=== PATIENT | male | born 1945 | race Caucasian/White ===

== ENCOUNTER → 2017-05-07 06:33 | Outpatient (CLI) | payer MEDICARE, OTHER, SELFPAY ==
--- NOTE | 2017-05-07 18:28 | STRESSREP ---
Stress Test Report Pharmacologic myocardial perfusion stress protocol. 71-year-old man with a history of pacemaker implantation atherosclerotic cardiovascular disease. Stress protocol: Resting EKG demonstrates sinus bradycardia with a rate of 58 bpm occasional premature atrial complexes noted. 0.4 mg regadenoson was infused per usual protocol followed by rapid intravenous saline flush injection. Continuous EKG monitoring was performed. Patient maintained sinus rhythm throughout the recording with frequent premature ventricular complexes. The maximum heart rate attained was 61 beats minute which was 40% maximum predicted heart rate the maximum workload attained was 1 metabolic equivalent. At rest there were no ST or T-wave changes noted suggest abnormal flow reserve at peak infusion no ST or T-wave changes were noted to suggest abnormal flow reserve. The resting blood pressure was 140/80 mmHg. Myocardial perfusion protocol. 14.8 mCi of technetium 99m sestamibi was injected at rest. 0.4 mg of regadenoson was infused per usual protocol. Peak infusion 44.3 mCi of technetium 99m sestamibi was injected stress images were obtained stress and rest images were reconstructed and compared in the short axis vertical long and horizontal long axis. Gated images were also obtained. Perfusion SPECT analysis. Review of the stress images demonstrate normal uptake of tracer noted in all areas of the myocardium. The resting images similarly demonstrate normal uptake of tracer noted in all areas myocardium. There is a small portion of the apex which has a perfusion defect noted on the stress and resting images to a similar extent. The above is not suggestive of ischemia or previous infarct cannot be completely excluded or apical pacemaker activation may also be responsible. Gated SPECT analysis: The gated ejection fraction is noted to be 58%. Conclusion Probably normal pharmacologic myocardial perfusion stress test. Preserved ejection fraction.
== END ==
PROVIDERS: Family Provider Family Medicine; PCP Family Medicine; Visit Provider Internal Medicine Cardiovascular Disease
DX: I25.110 Atherosclerotic heart disease of native coronary artery with unstable angina pectoris (principal)
CPT/HCPCS: 78452; 93017; A9500; A4216; J2785

== ENCOUNTER 2017-09-23 07:18 | Day surgery (SDC) | payer MEDICARE, OTHER, SELFPAY ==
[2017-09-23 07:43] VITALS: BP 141/87; PULSE 54; RESP 16; TEMP 36.3; O2SAT 96; BMI 33.3
[2017-09-23 08:00] LABS: Prothrombin Time Fingerstick 11.3 SEC (11.9-14.4)
--- NOTE | 2017-09-23 09:10 | HEM_PTH ---
PATIENT: ALIA ANDRES LOC: [facility] [place][id number] AGE/SX: 72/M ROOM: RE09/23/[address]: Dr. Johnnie Bethea MD : 1945 BED: DIS: 09/23/2017 SPEC #: [id number] RECD: 09/23/17 12:47 STATUS: HAILY DAWN #: [id number] KOLBY: 09/23/17 09:[address]: Johnnie Bethea DEPT: SURGICAL PATHOLOGY RECD BY: Mao Anderson ENTERED: 09/23/17 13:34 SP TYPE: HEMORRHOID OTHR DR: Dr. Adriano Duran MD Tissues: A - HEMORRHOIDS B - HEMORRHOIDS C - HEMORRHOIDS Procedures: Surgery Specimen Level III HEADER OPERATION: Hemorrhoidectomy PRE-OP DIAGNOSIS: Internal and external hemorrhoids TISSUE SUBMITTED: A. Anterior right hemorrhoidal complex, B. Lateral left hemorrhoidal complex, C. Posterior hemorrhoidal complex MICROSCOPIC DIAGNOSIS A. Anterior right hemorrhoidal complex, hemorrhoidectomy: A piece of squamous mucosa with dilated and congested blood vessels, consistent with hemorrhoid. B. Lateral left hemorrhoidal complex, hemorrhoidectomy: A piece of anorectal mucosa with dilated and congested blood vessels, consistent with hemorrhoid. C. Posterior hemorrhoidal complex, hemorrhoidectomy: A piece of anorectal mucosa with dilated and congested blood vessels, consistent with hemorrhoid. SJ:astrid 09/24/17 MICROSCOPIC DESCRIPTION Slides are reviewed. GROSS DESCRIPTION A - Received in fixative is one container labeled with the patient's name and designated anterior right hemorrhoidal complex. The specimen consists of a single irregular fragment of glistening hines mucosa with attached submucosal tissue measuring 3 x 2 x 1 cm. Sections do not reveal mass lesions. A rental sales representative section is submitted in one cassette. B - Received in fixative is one container labeled with the patient's name and designated left lateral hemorrhoid complex. The specimen consists of a single irregular fragment of glistening hines mucosa with attached submucosal tissue measuring 2.8 x 2.5 x 1 cm. Sections do not reveal mass lesions. A rental sales representative section is submitted in one cassette. C - Received in fixative is one container labeled with the patient's name and designated posterior hemorrhoid complex. The specimen consists of a single irregular fragment of pink-hines soft tissue measuring 1 x 0.5 x 0.3 cm. The specimen is totally submitted in one cassette. / AM:astrid 09/23/17 TC:5 CPT: 93725 x3
[2017-09-23] MEDS: Bupivacaine 0.5% PF 10 ML VIAL (10:36)
[2017-09-23] MEDS: Dibucaine 30 GM Tube 1 APPLIC (10:36)
--- NOTE | 2017-09-23 10:44 | PCM.OPRPT ---
Report of Operation Date of Procedure: 09/23/17 Pre-Operative Diagnosis: symptomatic hemorrhoids Post-Operative Diagnosis: symptomatic hemorrhoids, right anterior, left lateral, small posterior Surgery/Procedure Performed:: examination under anesthesia, 3 quadrant hemorrhoidectomy csr retail: None Type of Anesthesia:: General Anesthesiologist: Royer Pandey ASA3 Specimen's removed: right anterior, left lateral, small posterior Estimated Blood Loss (mL): 100 Fluids Replaced: 1000 Description of Procedure: The patient was brought to the operating suite. Sign in was performed verifying patient, site, procedure, position, and DVT prophylaxis with SCDs. Patient received clindamycin 600 mg for antibiotic prophylaxis. Following induction of general anesthetic. The patient was transferred to supine position to the prone jackknife position with care being taken to avoid pressure points. The patients perineal area was then prepped and draped in the usual fashion. Timeout was performed verifying patient, site, procedure, and position. External examination demonstrated significant prolapsing hemorrhoids in the right anterior and left lateral quadrants, with a smaller prolapsing hemorrhoid in the posterior aspect-grade 2-3. Bi-digital exam demonstrated significant hemorrhoids with prolapsing mucosa and no other palpable abnormalities Local anesthetic was injected around the planned excision site. All 3 quadrants were addressed. Largest to smallest. The limit of the resection was marked on the lateral anoderm with a hemostat, the hemorrhoidal main complex was grasped with a Davis clamp and the apex grasped with a small hemostat. A scalpel was used to start the dissection on the lateral anoderm and dissection carried to the dentate line. At this point, the sphincter complex was dissected off the hemorrhoid to avoid sphincter injury bluntly. Electrocautery was then used to dissect the hemorrhoid proximal to the dentate line. A 2-0 chromic [id number] suture was placed above the apex of the proximal resection. The hemorrhoidal complex transected. Each hemorrhoidal complex was sent separately. The defect was then closed with a running locking suture. The dentate line transition to a simple suture. This procedure was repeated for the additional 2 hemorrhoidal complexes. With good hemostasis, half percent Marcaine was injected in the perianal skin and dibucaine impregnated Gelfoam was placed in the anal canal. A dressing was applied and mesh pants were used to hold the dressing in place. The patient was returned to the supine position and extubated and brought to recovery room in stable condition. - Admit VTE Documentation VTE Present on Admission: No VTE Mechan Device Prophylaxis: SCD's VTE Pharm Prophylaxis ordered?: Yes
--- NOTE | 2017-09-23 10:56 | PCM.DC.REC ---
Discharge Diet: No Restrictions Discharge Activity: Return to Normal Activity, May Not Drive - while taking narcotic pain medications. Additional Activity Instructions:: Do not drive or work with heavy equipment or sign legal documents for 24 hours. Be aware that pain medications may cause nausea. You should typically eat light foods as you take your pain medications. Pain medications may also cause constipation, if you have difficulty with this please discuss with your doctor. Additional Dressing/Incision Instructions:: Leave the operative bandage on for 2 days. If a local anesthetic plug was placed in the anal area, try not to expel for 24-[address] dibucaine ointment on the perianal area as needed. Sitz baths twice daily and after bowel movements. restart coumadin today Allergies/Adverse Reactions: Allergies codeine Allergy (Verified 09/17/17 11:43) Rash morphine Allergy (Verified 09/17/17 11:43) Rash venom-honey bee [bee venom (honey bee)] Allergy (Verified 09/17/17 11:43) Anaphylaxis Medications to take at Discharge Escitalopram Oxalate [Lexapro] 20 mg PO DAILY 11/28/13 Lisinopril [Zestril] 20 mg PO QHS 11/28/13 Simvastatin [Zocor] 40 mg PO QHS 11/28/13 Warfarin Sodium [Coumadin] 5 mg PO DAILY 09/17/17 Dibucaine 1 applic OPERA.SITE PRN PRN 14 Days #2 tube 09/23/17 The following prescriptions were given: Dibucaine 1 applic OPERA.SITE PRN PRN 14 Days #2 tube PRN Reason: Anal/Rectal Irritations Primary Care Physician: Adriano Duran MD [Primary Care Provider] - Test Results: Test results from this visit will be discussed in further detail at your follow-up appointment, if applicable. Please Follow Up With: Johnnie Bethea MD - [phone] When: Plan to have a follow up approximately 14 days after surgery.
[2017-09-23 11:03] VITALS: BP 106/95; BP 141/87; PULSE 45; RESP 18; TEMP 36.1; O2SAT 94
[2017-09-23 11:15] VITALS: BP 112/87; BP 141/87; PULSE 54; RESP 18; O2SAT 97
[2017-09-23 11:30] VITALS: BP 127/71; BP 141/87; PULSE 53; RESP 18; TEMP 36.2; O2SAT 94
[2017-09-23 12:18] VITALS: BP 141/87; BP 147/81; PULSE 100; RESP 16; TEMP 36.3; O2SAT 96
== END 2017-09-23 12:22 | disposition home or self-care (01) ==
LOC: SDC 07:19 → AC 07:19
PROVIDERS: Family Provider Family Medicine; PCP Family Medicine; Visit Provider Surgery
PROC: (CPT 46250; principal; 2017-09-23 08:55)
DX: K64.2 Third degree hemorrhoids (principal); I48.91 Unspecified atrial fibrillation; F41.9 Anxiety disorder, unspecified; F32.9 Major depressive disorder, single episode, unspecified; I10 Essential (primary) hypertension; E78.5 Hyperlipidemia, unspecified; G47.33 Obstructive sleep apnea (adult) (pediatric); R56.9 Unspecified convulsions; E55.9 Vitamin D deficiency, unspecified; F98.8 Other specified behavioral and emotional disorders with onset usually occurring in childhood and adolescence; Z95.0 Presence of cardiac pacemaker; Z85.820 Personal history of malignant melanoma of skin; Z87.891 Personal history of nicotine dependence; Z79.01 Long term (current) use of anticoagulants; Z79.891 Long term (current) use of opiate analgesic; Z79.899 Other long term (current) drug therapy
CPT/HCPCS: 46250; 36416; 85610; 88304; J7120

== ENCOUNTER 2018-09-17 09:28 | Observation (INO) | payer MEDICARE, OTHER, SELFPAY ==
[2018-07-19 13:50] VITALS: BMI 33.7
[2018-09-17] VITALS (8 sets, daily range): BP systolic 118–149; BP diastolic 74–84; PULSE 50; RESP 16–18; TEMP 36.4–36.7; O2SAT 94–97; BMI 33.7; BMI 34.4
--- NOTE | 2018-09-17 09:43 | RAD_ITS ---
STUDY: X-RAY CHEST REASON FOR EXAM: Male, 73 years old. Chest pain. TECHNIQUE: Single AP portable view of the chest. COMPARISON: Comparison is made with prior study of August 24, 2012. FINDINGS: The lungs are clear and expanded. There is no demonstrated pleural abnormality. There is borderline cardiomegaly. A left-sided dual-chamber pacemaker is seen. Normal mediastinum and yasemin. Normal visualized pulmonary arteries. There is atherosclerotic tortuosity of the aortic arch and descending thoracic aorta. There are diffuse degenerative changes of the visualized thoracic spine. Normal visualized ribs, clavicles, and shoulders. There is no demonstrated abnormality of the visualized soft tissue structures of the upper abdomen. RAD/Chest 1 View (Portable) IMPRESSION: Borderline cardiomegaly. No acute abnormality is seen. Electronically Signed: Fernando Garcia, at 10:08 EDT , Service support ,
--- NOTE | 2018-09-17 09:43 | EKG12_ITS ---
Test Reason : CP Blood Pressure : / mmHG Vent. Rate : 054 BPM Atrial Rate : 049 BPM P-R Int : 000 ms QRS Dur : 108 ms QT Int : 452 ms P-R-T Axes : 000 024 050 degrees QTc Int : 428 ms Atrial-paced rhythm with occasional Premature ventricular complexes Nonspecific T wave abnormality Abnormal ECG Confirmed by CARISA CAMPBELL ([id number]), research editor CHERYL GEORGE ([id number]) on 09/20/2018 1:58:21 PM Referred By: Kali Miller Confirmed By:CARISA CAMPBELL
[2018-09-17 10:11] LABS: Absolute Lymphocyte Count 1.44 X10^3/uL (0.83-4.51); Absolute Neutrophil Count 3.6 X10^3/uL (2.0-7.7); Basophil# 0.02 X10^3/uL; Basophil% 0.3 % (0-1); Eosinophil# 0.15 X10^3/uL; Eosinophils% 2.5 % (0-5); Hematocrit 51.2 % (40-54); Hemoglobin 17.3 g/dL (13.0-16.5); Lymphocyte # 1.44 X10^3/ul (4.0); Lymphocyte % 24.2 % (19-41); Mean Corp Hgb Conc 33.8 g/dL (32-36); Mean Corpuscular Hgb 31.5 pg (27.0-32.0); Mean Corpuscular Volume 93.1 fL (80-94); Mean Platelet Vol. 10.1 fl (6.2-12.0); Monocyte# 0.72 X10^3/uL; Monocyte% 12.1 % (0-10); NRBC Flagged by Analyzer 0 % (0-5); Neutrophil # 3.58 X10^3/uL (2.7-7.7); Neutrophil % 60.1 % (47-70); Platelet Count 139 K/mm3 (150-450); RBC Distribution Width CV 12.9 % (11.6-14.6); RBC Distribution Width SD 44.2 fl (35.1-43.9)
[2018-09-17 10:17] LABS: International Normalized Ratio 2.7; Prothrombin Time (Protime)PT. 28.7 SECONDS (11.7-14.9)
[2018-09-17] MEDS: 0.9% Normal Saline 1,000 ML 150 ML IV (10:20)
[2018-09-17 10:21] LABS: Anion Gap 2 (5-15); BUN 19 mg/dL (7-18); BUN/Creat Ratio 14.4 RATIO (10-20); Calcium,Total 8.8 mg/dL (8.5-10.1); Chloride 102 mmol/L (98-107); Creatinine, Serum 1.32 mg/dL (0.70-1.30); EST Glomerular Filtration Rate 57 mL/min (>60); Est Glom Filt Rate - Afr Amer 68 mL/min (>60); Estimated Creatinine Clearance 49.84 ml/min; Glucose 76 mg/dL (74-106); Potassium 4.2 mmol/L (3.5-5.1); Sodium Level 136 mmol/L (136-145)
--- NOTE | 2018-09-17 10:37 | ED.DCSUM_ITS ---
- ER Visit Summary Date of Service: 09/17/18 Chief Complaint: [Chest pain] History of Present Illness: The patient is a 73 M [since the emergency department complaint of chest discomfort that started about a week ago. Patient had intermittent pain lasting up to several hours at times. He did have one episode of what he thought was indigestion that lasted about 4 hours and he states that he had a Kailee fundoplication therefore he really should have heartburn issues. Patient complains of fatigue and complains of some intermittent discomfort and numbness in his left arm. Patient does complain of shortness of breath with activity and exertion. He denies symptoms necessarily being triggered by exertion however. Patient does have history of coronary artery disease, hypertension, high cholesterol, and history of A. fib. Patient has a pacemaker.] States that he thinks he had a heart catheterization about 11 years ago. He thinks his last stress test was maybe 2 years ago. Physical Examination: [HEENT-PERRLA, EOMI. Cranial nerves II through XII grossly intact. TMs clear. Mucous membranes moist. No adenopathy. Cardiovascular-regular rate and rhythm without murmur or ectopy Lungs-clear to auscultation, chest wall stable without crepitus or subcu emphysema Abdomen-normoactive bowel sounds, soft, nontender, no rebound or rigidity, no peritoneal signs. Extremities-intact ?4, normal range of motion, normal pulses, atraumatic] Test Results: [EKG obtained on arrival showed an atrially paced rhythm with some nonspecific ST changes and occasional PVCs. CBC with differential showed a white count 6.0, hemoglobin 17, hematocrit 51, platelets 139. Chemistries unremarkable. INR was 2.7. Troponin is less than 0.015. Chest x-ray showed nothing acute.] Emergency Department Course and Treatment: [Patient was observed on monitors here. He had no discomfort on arrival.] Treatment Plan: [Admit for further work-up and evaluation of chest pain.] Disposition: [Admit] Impression: [Chest pain-rule out acute current syndrome] This note was generated with [employer] software. It may contain incorrect words, spelling, and punctuation that were not noted in review of the chart prior to signing ED Disposition - Plan for ED Patient: Referrals: Adriano Duran MD [Primary Care Provider] -
--- NOTE | 2018-09-17 10:59 | HP.PCM_ITS ---
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 4457 [address] II Sterox #[id number] (8) Sick sinus syndrome Status: Chronic (9) Atherosclerotic heart disease of [place] coronary artery without angina pectoris Status: Chronic Qualifiers: [place] vs. transplanted heart: [place] heart Qualified Code(s): I25.10 - Atherosclerotic heart disease of [place] coronary artery without angina pectoris Comment: Mild (10) Sleep apnea with use of nocturnal bilevel positive airway pressure (BPAP) Status: Chronic History of Present Illness Date of Admission: 09/17/18 Chief Complaint: Chest pain The patient is a 73 year old M with history of mild atherosclerotic heart dis ease, sick sinus syndrome on pacemaker, paroxysmal A. fib on Coumadin came to ER with chest pain intermittently for 10 days. Chest pain feels like tightness, with radiation to left arm/numbness, sometimes radiates to back along with shortness of breath. Patient has been getting short of breath with a small distances or within home last 6 months. Last time he had Lexiscan stress test in April 2017 and was reported negative with EF 58% Past Medical History Past Medical History (Chronic Problems): Chronic Problems (Last Reviewed 07/19/18 @ 13:54 by Yaquelin Tomlinson) Sleep apnea with use of nocturnal bilevel positive airway pressure (BPAP) (Chronic) terminologist current use of anticoagulant (Chronic) Bradycardia (Chronic) Paroxysmal atrial fibrillation (Chronic) JHONATAN treated with BiPAP (Chronic) Essential hypertension (Chronic) Hyperlipemia (Chronic) Presence of permanent cardiac pacemaker (Chronic ~11/12/09) BSX, S603 [employer] 60 # [id number]; Lead 1 [employer] 4457 [address] II [employer]ox #[id number] Sick sinus syndrome (Chronic) Atherosclerotic heart disease of [place] coronary artery without angina pectoris (Chronic) Mild Medical History: Medical History (Last Reviewed 06/10/19 @ 13:54 by Yaquelin Tomlinson) terminologist current use of anticoagulant (Chronic) Z79.01 Bradycardia (Acute) R00.1 Paroxysmal atrial fibrillation (Acute) I48.0 JHONATAN treated with BiPAP (Chronic) G47.33 Essential hypertension (Chronic) I10 Hyperlipemia (Chronic) E78.5 Presence of permanent cardiac pacemaker (Chronic) Onset Date: ~11/12/09 Z95.0 BSX, S603 [employer] 60 # [id number]; Lead 1 [employer] 4457 [employer] II Sterox #[id number] Sick sinus syndrome (Acute) I49.5 Atherosclerotic heart disease of [place] coronary artery without angina pectoris (Chronic) I25.10 Mild Seizures R56.9 Allergies chlorhexidine Allergy (Severe, Verified 09/17/18 09:33) Rash codeine Allergy (Severe, Verified 09/17/18 09:33) Rash morphine Allergy (Severe, Verified 09/17/18 09:33) Rash venom-honey bee [bee venom (honey bee)] Allergy (Severe, Verified 09/17/18 09:33) Anaphylaxis midazolam [From Versed] Adverse Reaction (Severe, Verified 09/17/18 09:33) Mental status change Home Medications: Ambulatory Orders Medication Instructions Recorded Escitalopram Oxalate [Lexapro] 20 mg PO DAILY 11/28/13 Lisinopril [Zestril] 20 mg PO QHS 11/28/13 Simvastatin [Zocor] 40 mg PO QHS 11/28/13 Warfarin Sodium [Coumadin] 5 mg PO DAILY 09/17/17 cholecalciferol (vitamin D3) 50,000 unit PO QWEEK 11/10/17 50,000 unit capsule hydromorphone 4 mg tablet 4 mg PO BID PRN tab 11/10/17 nitroglycerin 0.4 mg sublingual 0.4 mg SUBLINGUAL Q5-15M PRN 11/10/17 tablet melatonin 10 mg tablet 10 mg PO HS PRN 07/19/18 trazodone 50 mg tablet 25 mg PO QHS PRN tab 07/19/18 Surgical History: Surgical History (Last Reviewed 07/19/18 @ 13:54 by Yaquelin Tomlinson) History of arthroscopy of right knee Z98.890 History of cholecystectomy Z90.49 History of hemorrhoidectomy Z98.890 History of lumbar spinal fusion Z98.1 History of nasal septoplasty Z98.890 History of shoulder surgery Z98.890 Smoking Status: Former smoker - *Family History Paternal Family History: Family History (Last Reviewed 07/19/18 @ 13:54 by Yaquelin Tomlinson) Father Mitral valve disease Diabetes Cancer Mother Cancer Review of Systems Constitutional: Denies: Chills, Fever, Weight Change HEENT: Denies: Head Aches, Sinus Congestion, Sinus Drainage Cardiovascular: Reports: Chest Pain. Denies: Palpitations Respiratory: Reports: Shortness of Breath, Shortness of breath upon exertion. Denies: Cough, Shortness of breath at rest, Sputum production Gastrointestinal: Denies: Abdominal Pain, Nausea, Vomiting Genitourinary: Denies: Dysuria Musculoskeletal: Denies: Joint Pain, Joint Tenderness Skin: Denies: Rash, Wounds Neurological: Denies: Numbness, Tingling, Focal weakness Psychiatric: Denies: Anxiety, Depression, Homicidal Ideations, Suicidal Ideations Hematologic/ Lymphatic: Denies: Easy Bruising, Easy Bleeding VTE Information - Inpt Only VTE Present on Admission: No VTE Mechan Device Prophylaxis: None Reason prophylaxis not ordered:: Procedure Not Indicated - On Coumadin Patient Problems: Active and Suspected Problems (Last Reviewed 07/19/18 @ 13:54 by Yaquelin Tomlinson) Atypical chest pain (Acute) - Physical Exam General: Alert, Oriented x3, Cooperative HEENT: Atraumatic, PERRLA, EOMI, Normocephalic Neck: Supple, No JVD, Negative Carotid Bruits Lungs: Clear to auscultation, No rhonchi, No wheeze, No rales, Diminished - Air entry diminished in bilateral lung bases Cardiovascular: Regular rate, Regular Rhythm, Normal S1, Normal S2, No murmurs, - - Pacemaker left subclavicular region Abdomen: Bowel Sounds Present, Soft, Non Tender, Non-Distended, No Hepato- splenomegaly Extremities: Capillary Refill Less than 3 Seconds, Edema Skin: No rashes, No breakdown Musculoskeletal: No Tenderness to Palpation of Joints or Extremities, Arthritic Changes Neurological: Cranial nerves II-XII grossly intact Psych/Mental Status: Normal Affect, Appropriate Vital Signs Temp Pulse Resp BP Pulse Ox 97.6 F L 50 L 16 118/84 H 95 09/17/18 09:29 09/17/18 09:29 09/17/18 09:29 09/17/18 09:29 09/17/18 10:20 Oxygen Delivery Method Room Air Weight: 229 lb Body Mass Index (BMI) 33.7 Finger Stick Blood Glucose 82 Laboratory Tests Past 24 Hrs 09/17/18 09/17/18 09/17/18 09:35 09:35 09:35 WBC 6.0 RBC 5.50 Hgb 17.3 H Hct 51.2 MCV 93.1 MCH 31.5 MCHC 33.8 RDW Std Deviation 44.2 H RDW Coeff of Riya 12.9 Plt Count 139 L MPV 10.1 Immature Gran % (Auto) 0.800 Neut % (Auto) 60.1 Lymph % (Auto) 24.2 [place] % (Auto) 12.1 H Eos % (Auto) 2.5 Baso % (Auto) 0.3 Absolute Neuts (auto) 3.6 Absolute Lymphs (auto) 1.44 Nucleated RBC % 0 PT 28.7 H INR 2.7 Sodium 136 Potassium 4.2 Chloride 102 Carbon Dioxide 32.0 Anion Gap 2 L BUN 19 H Creatinine 1.32 H Estim Creat Clear Calc 49.84 Est GFR (MDRD) Af Amer 68 Est GFR (MDRD) Non-Af 57 L BUN/Creatinine Ratio 14.4 Glucose 76 Calcium 8.8 Troponin I < 0.015 Assessment/Plan All Active Problems (Last Reviewed 07/19/18 @ 13:54 by Yaquelin Tomlinson) Atypical chest pain (Acute) The patient is a 73 year old M with history of mild atherosclerotic heart disease, sick sinus syndrome on pacemaker, paroxysmal A. fib on Coumadin came to ER with chest pain intermittently for 10 days. Chest pain feels like tightness, with radiation to left arm/numbness, sometimes radiates to back along with shortness of breath. Patient has been getting short of breath with a small distances or within home last 6 months. Last time he had Lexiscan stress test in April 2017 and was reported negative with EF 58% 1. Atypical chest pain possible angina rule out acute coronary syndrome: Patient being admitted in PCU. First troponin is negative. EKG shows AV dual paced rhythm with prolonged AV conduction. QRS 112 ms. QTc 455 ms. No change from previous EKG of 11/2017. Serial cardiac enzymes. If negative, Lexiscan nuclear stress test tomorrow morning. Patient started on aspirin, nitro sublingual as needed and continue lisinopril and atorvastatin. 2. Other cardiac conditions: Sick sinus syndrome status post pacemaker, paroxysmal A. fib on Coumadin: INR is therapeutic. 3. Hypertension and dyslipidemia: Blood pressure is controlled. 4. Obstructive sleep apnea on BiPAP: Patient states he is on 21 BiPAP during sleep. 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. Patient needs outpatient BiPAP titration to be referred by neurologist. He might also need PFT as he gets easily short of breath for last 6 months 5. Venous thromboembolism prophylaxis: On Coumadin. INR 2.7 Laboratory Results 09/17/18 09:35: WBC 6.0, RBC 5.50, Hgb 17.3 H, Hct 51.2, MCV 93.1, MCH 31.5, MCHC 33.8, RDW Std Deviation 44.2 H, RDW Coeff of Riya 12.9, Plt Count 139 L, MPV 10.1, Immature Gran % (Auto) 0.800, Neut % (Auto) 60.1, Lymph % (Auto) 24.2, [place] % (Auto) 12.1 H, Eos % (Auto) 2.5, Baso % (Auto) 0.3, Absolute Neuts (auto) 3.6, Absolute Lymphs (auto) 1.44, Nucleated RBC % 0 09/17/18 09:35: Sodium 136, Potassium 4.2, Chloride 102, Carbon Dioxide 32.0, Anion Gap 2 L, BUN 19 H, Creatinine 1.32 H, Estim Creat Clear Calc 49.84, Est GFR (MDRD) Af Amer 68, Est GFR (MDRD) Non-Af 57 L, BUN/Creatinine Ratio 14.4, Glucose 76, Calcium 8.8, Troponin I < 0.015 09/17/18 09:35: PT 28.7 H, INR 2.7 09/17/18 12:25: Troponin I < 0.015 Clinical Impression(s) from Imaging Studies Chest X-Ray 09/17/18 09:43 IMPRESSION: Borderline cardiomegaly. No acute abnormality is seen. Code Visit OBSV E&M: 71800 Initial observation care L3
--- NOTE | 2018-09-17 12:05 | CPS ---
Pt wears pap HS. to bring home machine in.
--- NOTE | 2018-09-17 12:13 | EKG12_ITS ---
Test Reason : ADM CP EKG Blood Pressure : / mmHG Vent. Rate : 050 BPM Atrial Rate : 050 BPM P-R Int : 282 ms QRS Dur : 112 ms QT Int : 500 ms P-R-T Axes : 000 038 063 degrees QTc Int : 455 ms AV dual-paced rhythm with prolonged AV conduction Abnormal ECG When compared with ECG of 17-SEP-2018 09:26, MANUAL COMPARISON REQUIRED, DATA IS UNCONFIRMED Confirmed by CARISA CAMPBELL ([id number]), editor managing newspaper CHERYL GEORGE ([id number]) on 09/23/2018 3:01:48 PM Referred By: Kali Miller Confirmed By:CARISA CAMPBELL
--- NOTE | 2018-09-17 16:08 | NURSING ---
Patient reports chest discomfort as he has experienced prior to coming in. No distress noted. Patient is able to converse with RN and show drawings that he has done. Offered to get EKG and give Nitro. Patient refused and stated that chest pain is now gone. Patient instructed to inform RN if pain should return or get worse. Patient agrees to same.
[2018-09-17] MEDS: Aspirin E.C. 81 MG Tablet PO (16:16)
[2018-09-17] MEDS: Lisinopril 20 MG Tablet PO (22:01)
[2018-09-17] MEDS: Escitalopram Oxalate 20 MG Tablet PO (22:01)
[2018-09-17] MEDS: Atorvastatin Calcium 40 MG Tablet PO (22:01)
[2018-09-18 03:01] VITALS: PULSE 50
[2018-09-18 04:00] VITALS: BP 122/71; PULSE 58; RESP 16; TEMP 36.4; O2SAT 97
--- NOTE | 2018-09-18 05:55 | EKG12_ITS ---
Test Reason : AM EKG Blood Pressure : / mmHG Vent. Rate : 050 BPM Atrial Rate : 050 BPM P-R Int : 250 ms QRS Dur : 106 ms QT Int : 468 ms P-R-T Axes : 013 066 080 degrees QTc Int : 426 ms Atrial-paced rhythm with prolonged AV conduction Low voltage QRS T wave abnormality, consider anterior ischemia Abnormal ECG When compared with ECG of 17-SEP-2018 12:05, MANUAL COMPARISON REQUIRED, DATA IS UNCONFIRMED Confirmed by CARISA CAMPBELL ([id number]), art editor CHERYL GEORGE ([id number]) on 09/23/2018 3:02:56 PM Referred By: Kali Miller Confirmed By:CARISA CAMPBELL
[2018-09-18] MEDS: Aspirin E.C. 81 MG Tablet PO (06:05)
[2018-09-18 06:48] VITALS: PULSE 52
[2018-09-18 06:55] VITALS: PULSE 111
--- NOTE | 2018-09-18 07:00 | STEWCON_ITS ---
Reason For Study: Chest Pain Stress Results Protocol: Dobutamine Stress Echo Maximum Predicted HR: 147 bpm Target HR: 125 bpm % Maximum Predicted HR: 143 % Heart Stage Duration Rate BP Comment (mm:ss) (bpm) Baseline 50 123/73No Chest Pain; Diluted Definity 5 ML Given DSE 10 MCG 3:31 50 112/69No Chest Pain DSE 20 MCG 3:00 74 117/61No Chest Pain DSE 30 MCG 3:24 92 98/53No Chest Pain; Atroping 0.25 MG IVP Atropine 0.25 MG IVP; After Atropine Dose, Appeared to Go Into SVT, DSE 40 3:29 210 96/45Coughed and Paced Beats With Atrial Fibrillation Noted; Was in MCG Paroxysmal SVT and then Atrial Fibrillation Into Recovery Patient Converted from SVT Into Atrial Fibrillation With Paced Beats, Recovery 90 121/83HR 150's-Metoprolol 5 MG Given Slow IVP Over 5 Minutes Per Order; Patient Remains in Atrial Fibrillation With Paced Beats, HR 90 BPM Stress Duration: 13:24 mm:ss Maximum Stress HR: 210 bpm METS: 1 Baseline Echocardiogram Findings The estimated ejection fraction is 65 %. Stress Echo Wall motion Data Resting WM Intermediate WM Stress WM Resting Wall Motion Wall Motion Stress No regional wall motion No regional wall motion abnormalities noted. abnormalities noted. EKG Data The baseline ECG displays normal sinus rhythm. The patient was titrated from 10 mcg to a maximum of 40 mcg of dobutamine during the stress. The maximum heart rate attained was 210 beats per minute. This was 142% of maximum predicted heart rate. During dobutamine infusion, there were no ST or T wave changes noted to suggest ischemia. No clinical angina was noted. Interpretation Summary The estimated ejection fraction is 65 %. Normal, adequate, dobutamine echocardiogram. Negative for ischemia by EKG and echocardiographic criteria. No anginal symptoms noted. Patient developed SVT during diffusion putamina infusion which converted to atrial fibrillation with RVR interspersed with paced ventricular beats. No associated wall motion abnormalities noted. Final LVEF is 75%. Test terminated due to attainment target heart rate. Despite several minutes post procedure patient remained in atrial fibrillation and is on anticoagulation. He has a history of paroxysmal atrial fibrillation. Decreased sensitivity due to poor echo windows requiring Definity enhancing agent. No complications. The study was technically difficult. Contrast injection was performed. Ordering Physician: Kali Miller Referring Physician: Alireza Colunga Performed By: Angeli Davison RDCS, RVT
[2018-09-18 07:10] LABS: Absolute Lymphocyte Count 1.38 X10^3/uL (0.83-4.51); Absolute Neutrophil Count 3.2 X10^3/uL (2.0-7.7); Basophil# 0.05 X10^3/uL; Basophil% 0.9 % (0-1); Eosinophil# 0.12 X10^3/uL; Eosinophils% 2.2 % (0-5); Hematocrit 51.8 % (40-54); Hemoglobin 17.6 g/dL (13.0-16.5); Lymphocyte # 1.38 X10^3/ul (4.0); Lymphocyte % 25.1 % (19-41); Mean Corpuscular Hgb 31.3 pg (27.0-32.0); Mean Corpuscular Volume 92.2 fL (80-94); Mean Platelet Vol. 10.3 fl (6.2-12.0); Monocyte# 0.66 X10^3/uL; NRBC Flagged by Analyzer 0 % (0-5); Neutrophil # 3.23 X10^3/uL (2.7-7.7); Neutrophil % 58.9 % (47-70); Platelet Count 146 K/mm3 (150-450); RBC Distribution Width SD 44.1 fl (35.1-43.9); Red Blood Count 5.62 M/mm3 (4.6-6.2); White Blood Count 5.5 K/mm3 (4.4-11.0)
[2018-09-18 07:15] LABS: International Normalized Ratio 2.6; Prothrombin Time (Protime)PT. 28.2 SECONDS (11.7-14.9)
[2018-09-18 07:50] LABS: Anion Gap 10 (5-15); BUN 22 mg/dL (7-18); BUN/Creat Ratio 16.9 RATIO (10-20); Calcium,Total 8.9 mg/dL (8.5-10.1); Chloride 105 mmol/L (98-107); Cholesterol 191 mg/dL (200); EST Glomerular Filtration Rate 58 mL/min (>60); Est Glom Filt Rate - Afr Amer 70 mL/min (>60); Estimated Creatinine Clearance 50.61 ml/min; Glucose 96 mg/dL (74-106); High Density Lipoprotein 56 mg/dL; Magnesium 2.3 mg/dL (1.6-2.6); Potassium 4.5 mmol/L (3.5-5.1); Sodium Level 140 mmol/L (136-145); Thyroid Stim Hormone (TSH) 1.57 uIU/mL (0.358-3.74); Triglycerides 146 mg/dL; Very Low Density Lipoprotein 29 mg/dL (5-40)
[2018-09-18 08:44] VITALS: BP 128/88; PULSE 94; RESP 16; TEMP 36.6; O2SAT 98
[2018-09-18 11:00] VITALS: O2SAT 92
--- NOTE | 2018-09-18 11:05 | DCINST_ITS ---
- Discharge Diagnoses Current Active Problems: Current Active and Chronic Problems (Last Reviewed 07/19/18 @ 13:54 by Yaquelin Tomlinson) Atypical chest pain (Acute) Sleep apnea with use of nocturnal bilevel positive airway pressure (BPAP) (Chronic) You will use the following diet at home:: Cardiac Discharge Activity: Return to Normal Activity, May not drive while taking narcotic pain medications. Call your doctor if you observe: Fever of 101 or Higher, Numbness or Tingling, Change in Color, Inability to urinate, Inability to have a bowel movement, Shortness of breath, Dizziness, Fainting spells, Swelling in the ankles, Chest pain, Increased palpitations (irregular heartbeat), Calf discomfort, Uncontrolled pain Allergies/Adverse Reactions: Allergies chlorhexidine Allergy (Severe, Verified 09/17/18 09:33) Rash codeine Allergy (Severe, Verified 09/17/18 09:33) Rash morphine Allergy (Severe, Verified 09/17/18 09:33) Rash venom-honey bee [bee venom (honey bee)] Allergy (Severe, Verified 09/17/18 09:33) Anaphylaxis midazolam [From Versed] Adverse Reaction (Severe, Verified 09/17/18 09:33) Mental status change Medications to take at Discharge Escitalopram Oxalate [Lexapro] 20 mg PO DAILY 11/28/13 Lisinopril [Zestril] 20 mg PO QHS 11/28/13 Simvastatin [Zocor] 40 mg PO QHS 11/28/13 Warfarin Sodium [Coumadin] 5 mg PO DAILY 09/17/17 cholecalciferol (vitamin D3) 50,000 unit capsule 50,000 unit PO QWEEK 11/10/17 hydromorphone 4 mg tablet 4 mg PO BID PRN tab 11/10/17 nitroglycerin 0.4 mg sublingual tablet 0.4 mg SUBLINGUAL Q5-15M PRN 11/10/17 melatonin 10 mg tablet 10 mg PO HS PRN 07/19/18 trazodone 50 mg tablet 25 mg PO QHS PRN tab 07/19/18 Primary Care Physician: Adriano Duran MD [Primary Care Provider] - Please follow up with your Primary Care Physician in: IN 1-2 weeks Test Results: Test results from this visit will be discussed in further detail at your follow- up appointment, if applicable. Please Follow Up With: Rajiv Ingram MD When: in 3-4 weeks for recurrent chest pain/PAfib
--- NOTE | 2018-09-18 11:07 | PCM.DC.SUM ---
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 4457 [address] II [employer] #[id number] Sick sinus syndrome (Chronic) Atherosclerotic heart disease of [place] coronary artery without angina pectoris (Chronic) Mild Hospital Course and Treatment Imaging Results: 09/18/18 07:00 Stress Test Echo W/Contrast [ECHO] Routine Summary of Care Provided: [] The patient is a 73 year old M with history of mild atherosclerotic heart disease, sick sinus syndrome on pacemaker, paroxysmal A. fib on Coumadin was admitted to PCU with chest pain intermittently for 10 days. Chest pain feels like tightness, with radiation to left arm/numbness, sometimes radiates to back along with shortness of breath. Last time he had Lexiscan stress test in April 2017 and was reported negative with EF 58% 1. Atypical chest pain possible angina rule out acute coronary syndrome: Patient being admitted in PCU. First troponin is negative. EKG shows AV dual paced rhythm with prolonged AV conduction. QRS 112 ms. QTc 455 ms. No change from previous EKG of 11/2017. Serial troponin enzymes were negative. Patient had a stress echo which was reported negative for acute ischemia. EF 65%. Patient started on aspirin, nitro sublingual as needed and continue lisinopril and atorvastatin. As stress echo is negative, there is no further indication for primary prophylaxis for aspirin. Patient is already on Coumadin. Fasting lipid profile within normal limit. Continue Zocor 40 mg daily. 2. Other cardiac conditions: Sick sinus syndrome status post pacemaker, paroxysmal A. fib on Coumadin: INR is therapeutic. 3. Hypertension and dyslipidemia: Blood pressure is controlled. 4. Obstructive sleep apnea on BiPAP: Patient states he is on 21/18 BiPAP during sleep. His office correspondent is [facility]. Patient needs outpatient BiPAP titration to be referred by neurologist. He might also need PFT as he gets easily short of breath for last 6 months 5. Venous thromboembolism prophylaxis: On Coumadin. INR 2.6 Discharge medication reconciliation done. Discharge follow-up instructions completed. Discharge process discussed with the patient and all questions were answered to patient's satisfaction.. Total time spent, exact 35 minutes on discharge meds reconciliation, examination, review of imaging and blood test and discussion with the patient on follow-up instructions. Clinical Impression(s) from Imaging Studies Chest X-Ray 09/17/18 09:43 IMPRESSION: Borderline cardiomegaly. No acute abnormality is seen. Laboratory Results 09/18/18 05:55: PT 28.2 H, INR 2.6 09/18/18 06:26: WBC 5.5, RBC 5.62, Hgb 17.6 H, Hct 51.8, MCV 92.2, MCH 31.3, MCHC 34.0, RDW Std Deviation 44.1 H, RDW Coeff of Riya 13.0, Plt Count 146 L, MPV 10.3, Immature Gran % (Auto) 0.900, Neut % (Auto) 58.9, Lymph % (Auto) 25.1, [place] % (Auto) 12.0 H, Eos % (Auto) 2.2, Baso % (Auto) 0.9, Absolute Neuts (auto) 3.2, Absolute Lymphs (auto) 1.38, Nucleated RBC % 0 09/18/18 06:26: Sodium 140, Potassium 4.5, Chloride 105, Carbon Dioxide 25.0, Anion Gap 10, BUN 22 H, Creatinine 1.30, Estim Creat Clear Calc 50.61, Est GFR (MDRD) Af Amer 70, Est GFR (MDRD) Non-Af 58 L, BUN/Creatinine Ratio 16.9, Glucose 96, Calcium 8.9, Magnesium 2.3, Triglycerides 146, Cholesterol 191, LDL Cholesterol 106, VLDL Cholesterol 29, HDL Cholesterol 56, TSH 1.57 Subjective: Seen and examined. Patient does not have any chest pain. No shortness of breath. - Physical Exam General: Alert, Oriented x3, Cooperative HEENT: Atraumatic, PERRLA, EOMI, Normocephalic Neck: Supple, No JVD, Negative Carotid Bruits Lungs: Clear to auscultation, Normal air movement, No rhonchi, No wheeze, No rales Cardiovascular: Regular rate, Regular Rhythm, Normal S1, Normal S2, No murmurs Abdomen: Bowel Sounds Present, Soft, Non Tender, Non-Distended Extremities: No edema, Capillary Refill Less than 3 Seconds Skin: No rashes, No breakdown Musculoskeletal: No Tenderness to Palpation of Joints or Extremities, Arthritic Changes Neurological: Cranial nerves II-XII grossly intact, Deep Tendon Reflexes 2+/4 and Symmetrical, Neuro grossly intact, Motor Exam 5/5 strength throughout Psych/Mental Status: Normal Affect, Appropriate Vital Signs Temp Pulse Resp BP Pulse Ox 98 F 94 16 128/88 H 98 09/18/18 08:44 09/18/18 08:44 09/18/18 08:44 09/18/18 08:44 09/18/18 08:44 Oxygen Delivery Method Room Air Weight: 232 lb 5.875 oz Body Mass Index (BMI) 34.4 Finger Stick Blood Glucose 82 Intake and Output for Last 24 Hours 09/16/18 09/17/18 09/18/18 23:59 23:59 23:59 Intake Total 980 / 980 Balance 980 / 980 Laboratory Tests Past 24 Hrs 09/17/18 09/17/18 09/18/18 12:25 15:36 05:55 WBC RBC Hgb Hct MCV MCH MCHC RDW Std Deviation RDW Coeff of Riya Plt Count MPV Immature Gran % (Auto) Neut % (Auto) Lymph % (Auto) [place] % (Auto) Eos % (Auto) Baso % (Auto) Absolute Neuts (auto) Absolute Lymphs (auto) Nucleated RBC % PT 28.2 H INR 2.6 Sodium Potassium Chloride Carbon Dioxide Anion Gap BUN Creatinine Estim Creat Clear Calc Est GFR (MDRD) Af Amer Est GFR (MDRD) Non-Af BUN/Creatinine Ratio Glucose Calcium Magnesium Troponin I < 0.015 < 0.015 Triglycerides Cholesterol LDL Cholesterol VLDL Cholesterol HDL Cholesterol TSH 09/18/18 09/18/18 06:26 06:26 WBC 5.5 RBC 5.62 Hgb 17.6 H Hct 51.8 MCV 92.2 MCH 31.3 MCHC 34.0 RDW Std Deviation 44.1 H RDW Coeff of Riya 13.0 Plt Count 146 L MPV 10.3 Immature Gran % (Auto) 0.900 Neut % (Auto) 58.9 Lymph % (Auto) 25.1 [place] % (Auto) 12.0 H Eos % (Auto) 2.2 Baso % (Auto) 0.9 Absolute Neuts (auto) 3.2 Absolute Lymphs (auto) 1.38 Nucleated RBC % 0 PT INR Sodium 140 Potassium 4.5 Chloride 105 Carbon Dioxide 25.0 Anion Gap 10 BUN 22 H Creatinine 1.30 Estim Creat Clear Calc 50.61 Est GFR (MDRD) Af Amer 70 Est GFR (MDRD) Non-Af 58 L BUN/Creatinine Ratio 16.9 Glucose 96 Calcium 8.9 Magnesium 2.3 Troponin I Triglycerides 146 Cholesterol 191 LDL Cholesterol 106 VLDL Cholesterol 29 HDL Cholesterol 56 TSH 1.57 Discharge Activity: Return to Normal Activity, May not drive while taking narcotic pain medications. Call your doctor if you observe: Fever of 101 or Higher, Numbness or Tingling, Change in Color, Inability to urinate, Inability to have a bowel movement, Shortness of breath, Dizziness, Fainting spells, Swelling in the ankles, Chest pain, Increased palpitations (irregular heartbeat), Calf discomfort, Uncontrolled pain Home Medications: Medications to take at Discharge Escitalopram Oxalate [Lexapro] 20 mg PO DAILY 11/28/13 Lisinopril [Zestril] 20 mg PO QHS 11/28/13 Simvastatin [Zocor] 40 mg PO QHS 11/28/13 Warfarin Sodium [Coumadin] 5 mg PO DAILY 09/17/17 cholecalciferol (vitamin D3) 50,000 unit capsule 50,000 unit PO QWEEK 11/10/17 hydromorphone 4 mg tablet 4 mg PO BID PRN tab 11/10/17 nitroglycerin 0.4 mg sublingual tablet 0.4 mg SUBLINGUAL Q5-15M PRN 11/10/17 melatonin 10 mg tablet 10 mg PO HS PRN 07/19/18 trazodone 50 mg tablet 25 mg PO QHS PRN tab 07/19/18 Primary Care Physician: Adriano Duran MD [Primary Care Provider] - Please follow up with your Primary Care Physician in: IN 1-2 weeks Please Follow Up With: Rajiv Ingram MD When: in 3-4 weeks for recurrent chest pain/PAfib Medical Necessity - Tobacco Use Smoking Status: Former smoker Meaningful Use Info Meaningful Use Diagnoses (Choose all that apply): None applicable Code Visit OBSV E&M: 14356 Observation care discharge
== END 2018-09-18 11:06 | disposition home or self-care (01) ==
LOC: ED 09:53 → PCU 11:24
PROVIDERS: Admitting Provider Internal Medicine; Emergency Provider Emergency Medicine; Family Provider Family Medicine; PCP Family Medicine; Referring Provider Internal Medicine; Visit Provider Internal Medicine
DX: R07.89 Other chest pain (principal); R06.02 Shortness of breath; I25.10 Atherosclerotic heart disease of native coronary artery without angina pectoris; I10 Essential (primary) hypertension; R20.0 Anesthesia of skin; Z95.0 Presence of cardiac pacemaker; I48.0 Paroxysmal atrial fibrillation; E78.5 Hyperlipidemia, unspecified; G47.33 Obstructive sleep apnea (adult) (pediatric); Z79.899 Other long term (current) drug therapy; Z79.01 Long term (current) use of anticoagulants; Z87.891 Personal history of nicotine dependence
CPT/HCPCS: 36415; 71045; 80048; 80061; 83735; 84443; 84484; 85025; 85610; 93005; 93017; 93350; 96360; 96361; 99218; 99285; J7030; J7040; Q9957; A4216; C8928; G0378

== ENCOUNTER → 2018-10-08 08:52 | Outpatient (CLI) | payer MEDICARE, OTHER, SELFPAY ==
[2018-09-17 12:15] VITALS: BMI 34.4
--- NOTE | 2018-10-08 13:28 | EEG ---
- Electroencephalogram Date of service 10/08/2018 History EEG is being done in this 77 yr M to rule out seizures EEG Description: This is an 18 channel EEG with 10-20 lead placement system. Bipolar montages, Referential and Circumferential montages were reviewed. Photic stimulation and Hyperventilation were performed. The posterior dominant rhythm is 11 HZ synchronous, symmetric, reacting to eye opening and closing. Photo stimulation elicited normal driving response but no abnormal photoparoxysmal response, Hyperventilation did not elicit any abnormal photoparoxysmal response. Sleep was identified. There is no abnormal background slowing noted. There was no epileptiform discharges or electrographic seizures noted during this recording. Muscle artefact noted during the entire record, EKG artefact noted. EEG Interpretation This is normal awake and asleep EEG. There is no epileptiform discharges or electrographic seizures noted during the record.
== END ==
PROVIDERS: Family Provider Family Medicine; PCP Family Medicine; Referring Provider Family Medicine; Visit Provider Family Medicine
DX: R41.3 Other amnesia (principal); R25.1 Tremor, unspecified; G93.40 Encephalopathy, unspecified; I48.0 Paroxysmal atrial fibrillation; Z79.01 Long term (current) use of anticoagulants
CPT/HCPCS: 36415; 85610; 95819

== ENCOUNTER 2018-10-08 10:52 | Outpatient (RCR) | payer MEDICARE, OTHER, SELFPAY ==
[2018-09-17 12:15] VITALS: BMI 34.4
[2018-10-08 11:48] LABS: International Normalized Ratio 2.4; Prothrombin Time (Protime)PT. 26.4 SECONDS (11.7-14.9)
== END 2018-10-08 13:00 | disposition home or self-care (01) ==
LOC: LAB 10:52
PROVIDERS: Family Provider Family Medicine; PCP Family Medicine; Referring Provider Internal Medicine Cardiovascular Disease; Visit Provider Internal Medicine Cardiovascular Disease
DX: I48.0 Paroxysmal atrial fibrillation (principal); Z79.01 Long term (current) use of anticoagulants
CPT/HCPCS: 36415; 85610

== ENCOUNTER 2018-12-15 08:55 | Outpatient (RCR) | payer MEDICARE, OTHER, SELFPAY ==
[2018-09-17 12:15] VITALS: BMI 34.4
[2018-12-06 14:52] VITALS: BMI 35.7
[2018-12-15 09:52] LABS: International Normalized Ratio 1.2; Prothrombin Time (Protime)PT. 15.1 SECONDS (11.7-14.9)
== END 2018-12-15 18:00 | disposition home or self-care (01) ==
LOC: LAB 08:55
PROVIDERS: Family Provider Family Medicine; PCP Family Medicine; Referring Provider Internal Medicine Cardiovascular Disease; Visit Provider Internal Medicine Cardiovascular Disease
DX: I48.0 Paroxysmal atrial fibrillation (principal); Z79.01 Long term (current) use of anticoagulants
CPT/HCPCS: 36415; 85610

== ENCOUNTER 2019-01-25 10:39 | Outpatient (RCR) | payer MEDICARE, OTHER, SELFPAY ==
[2018-12-06 14:52] VITALS: BMI 35.7
[2019-01-25 11:19] LABS: International Normalized Ratio 1.2; Prothrombin Time (Protime)PT. 15.3 SECONDS (11.7-14.9)
== END 2019-01-25 18:00 | disposition home or self-care (01) ==
LOC: LAB 10:39
PROVIDERS: Nurse Practitioner Family; Family Provider Family Medicine; PCP Family Medicine; Referring Provider Internal Medicine Cardiovascular Disease; Visit Provider Internal Medicine Cardiovascular Disease
DX: I48.0 Paroxysmal atrial fibrillation (principal); Z79.01 Long term (current) use of anticoagulants
CPT/HCPCS: 36415; 85610

== ENCOUNTER 2019-03-03 14:14 | Outpatient (RCR) | payer MEDICARE, OTHER, SELFPAY ==
[2018-12-06 14:52] VITALS: BMI 35.7
[2019-02-10 11:32] LABS: International Normalized Ratio 2.8; Prothrombin Time (Protime)PT. 29.5 SECONDS (11.7-14.9)
[2019-03-03 16:20] LABS: Prothrombin Time Fingerstick 14.4 SEC (11.9-14.4)
== END 2019-03-03 18:00 | disposition home or self-care (01) ==
LOC: LAB 14:14
PROVIDERS: Family Provider Family Medicine; PCP Family Medicine; Referring Provider Internal Medicine Cardiovascular Disease; Visit Provider Internal Medicine Cardiovascular Disease
DX: I48.0 Paroxysmal atrial fibrillation (principal); Z79.01 Long term (current) use of anticoagulants
CPT/HCPCS: 36415; 36416; 85610

== ENCOUNTER 2019-04-12 11:13 | Outpatient (RCR) | payer MEDICARE, OTHER, SELFPAY ==
[2018-12-06 14:52] VITALS: BMI 35.7
[2019-04-12 11:25] LABS: Prothrombin Time Fingerstick 14.3 SEC (11.9-14.4)
== END 2019-04-12 18:00 | disposition home or self-care (01) ==
LOC: LAB 11:13
PROVIDERS: Family Provider Family Medicine; PCP Family Medicine; Referring Provider Internal Medicine Cardiovascular Disease; Visit Provider Internal Medicine Cardiovascular Disease
DX: I48.0 Paroxysmal atrial fibrillation (principal); Z79.01 Long term (current) use of anticoagulants
CPT/HCPCS: 36416; 85610

== ENCOUNTER 2019-05-24 07:00 | Outpatient (RCR) | payer MEDICARE, OTHER, SELFPAY ==
[2018-12-06 14:52] VITALS: BMI 35.7
[2019-05-24 07:20] LABS: Prothrombin Time Fingerstick 34.9 SEC (11.9-14.4)
== END 2019-06-09 18:00 | disposition home or self-care (01) ==
LOC: LAB 07:00
PROVIDERS: Family Provider Family Medicine; PCP Family Medicine; Referring Provider Internal Medicine Cardiovascular Disease; Visit Provider Internal Medicine Cardiovascular Disease
DX: I48.0 Paroxysmal atrial fibrillation (principal); Z79.01 Long term (current) use of anticoagulants
CPT/HCPCS: 36416; 85610

== ENCOUNTER → 2019-07-19 08:25 | Outpatient (CLI) | payer MEDICARE, OTHER, SELFPAY ==
[2019-07-11 08:33] VITALS: BMI 33.7
[2019-07-19 10:37] LABS: International Normalized Ratio 1.2
[2019-07-19 11:02] LABS: AST(SGOT) 20 U/L (15-37); Alanine Aminotransfer ALT/SGPT 28 U/L (16-61); Albumin, Serum 3.8 g/dL (3.2-5.0); Alkaline Phosphatase 72 U/L (45-117); Bilirubin, Direct 0.28 mg/dL (0.00-0.30); Cholesterol 152 mg/dL (200); Globulin 3.2 g/dL (2.2-4.2); High Density Lipoprotein 49 mg/dL; Triglycerides 109 mg/dL; Very Low Density Lipoprotein 22 mg/dL (5-40)
== END ==
PROVIDERS: PCP Family Medicine; Referring Provider Internal Medicine Cardiovascular Disease; Visit Provider Internal Medicine Cardiovascular Disease
DX: I48.0 Paroxysmal atrial fibrillation (principal); E78.00 Pure hypercholesterolemia, unspecified; Z79.01 Long term (current) use of anticoagulants
CPT/HCPCS: 36415; 80061; 80076; 85610

== ENCOUNTER 2019-08-16 11:50 | Day surgery (SDC) | payer MEDICARE, OTHER, SELFPAY ==
[2019-07-11 08:33] VITALS: BMI 33.7
--- NOTE | 2019-08-16 07:51 | HP.PCM_ITS ---
History and Physical Date of Admission: 08/16/19 Gurinder Broussard a 74 year old male who is a consultation requested by Dr. Duran for an opinion regarding altered bowel habits - diarrhea. My final recommendations will be communicated back to the requesting physician by way of shared Medical record. The patient denies a family history of colon cancer. ? The patient has been seen previously. I saw him 02/15/16 for this concern. That encounter has been reviewed. Prior to the consultation he had stool studies negative for all but c dif. for which he was treated with a 10 day course of metronidazole. That was followed by oral vancomycin and sent to me. When I saw him he reported having diarrhea up to 6 times a day in spite of the antibiotics. C dif was finally negative on 02/25/16 check and again 08/02/16. ? The patient was seen by ?for colonoscopy?12/20/14 due to a history of polyps. ?The procedure report has been reviewed and findings as follows: Impression: ??? - The entire examined colon is normal. ?- No specimens collected. ? The patient was seen by Dr. Duran on 05/19/19 that I have reviewed. Patient reported diarrhea that was watery the first 8 days out of the last 11. he felt it smelled like C dif. Gas bloating and grumbling. No fever. Dr. Duran prescribed metronidazole. ? On 05/22 the patient called to report the diarrhea was persisting. Dr. Duran ordered stool studies and lab. Shigella spp./Enteroinvasive E.coli DNA ? Not Detected Campylobacter jejuni/coli DNA ? Not Detected Shiga toxin-producing gene(s) ? Not Detected Salmonella spp. DNA ? Not Detected Specimen Request ? Specimen received in Ova and Parasite Kit. Culture ? No parasites seen. C. difficile PCR ? Negative for C. difficile toxin by PCR ? Component Latest Ref Rng & Units 05/24/2019 Specimen Request ? Specimen received in sterile container. Test Results ? Positive for lactoferrin, which may indicate presence of fecal white blood cells (A) ? Dr. Duran made the consultation on 05/27/19, however the patient reported that his stools had been normal the prior 4 days, so the patient held off. On 07/12/19 he sent a message to Dr. Duran that the diarrhea hadn't stopped. ? The patient has a history that includes anxiety, depression and ADD, Afib and bradycardia, HTN and HLD (sees Dr. Cardoza), melanoma, chronic low back pain, hearing loss and elevated blood sugar. ? Presenting complaint: Reporting sudden onset May 07 having continuous diarrhea - maybe 4 times a day... the best it gets is clumped up and loose, then not so for a couple days.... tons of gas... not a lot of cramping. Prior to this he had one to two bowel movements a day. ? Has been on Flagyl without change. Tried Imodium, but loose stools return. Takes Dilaudid intermittently , but that doesn't seem to help with the stool form. ? Has tried to cut of dairy. Drinks coffee black. No supplements. ? He tells me that he had a polyp removed about 10 years ago, and the last colonoscopy was about 5 years ago. ? ? PAST MEDICAL HISTORY ? Anxiety ? ? ADD improved with lexapro ? Atrial fibrillation (HCC) 2012 ? Bradycardia ? ? Chronic low back pain ? ? Depression ? ? Hearing loss ? ? uses hearing aids ? HTN (hypertension) ? ? Hyperglycemia ? ? Hyperglycemia 06/05/2016 ? Hyperlipidemia ? ? Low testosterone ? ? Melanoma of skin (HCC) ~2011 ? removed left lower quadrant ? Obstructive sleep apnea ? ? DME [employer] ? Seborrheic dermatitis ? ? Seizures (HCC) ? ? decided he does not have epilepsy ? Vitamin D deficiency 2014 ? PAST SURGICAL HISTORY ? CHOLECYSTECTOMY ? ? ? COLONOSCOP W/ OR W/O [facility] SPEC ? 12/20/14 ? Colonoscopy ? COLONOSCOPY & POLYPECTOMY ? ? ? ESOPH FUNDOPLASTY LAP ? 2009 ? HEMORRHOIDECTOMY ? 09/23/2017 ? EUA 3 quadrant hemorrhoidectomy [facility] ? KNEE RIGHT OP SURGERY ? ? ? arthroscopy ? LUMBAR SPINE FUSION COMBINED ? ~2008 ? LUMBAR SPINE FUSION COMBINED ? 07/19/14 ? Revision, laminectomy, fusion, fixation L2-S1 ? PACEMAKER (PM) ? ~2010 ? REPAIR BICEPS TENDON RUPTURE ? ? ? right, after a fall ? REPAIR NASAL SEPTUM DEFECT ? ? ? SHOULDER RIGHT OUT PT SURGERY ? ? ? x3 ? FAMILY HISTORY ? Breast Cancer Mother ? ? Psychiatry Mother ? ? bipolar disorder ? Alcohol/Drug Mother ? ? alcohol ? Cancer Father ? ? kidney ? Heart Father ? ? Mitral valve issue ? Diabetes Father ? ? Psychiatry Sister ? ? undiagnosed ? CURRENT MEDICATIONS ? escitalopram oxalate (LEXAPRO) 20 mg tablet Take 1 tablet by mouth once daily. 90 tablet 3 ? lisinopril (ZESTRIL, PRINIVIL) 10 mg tablet Take 1 tablet by mouth once daily. 90 tablet 3 ? warfarin (COUMADIN) 5 mg tablet 5mg with 2.5mg W or as directed 100 tablet 3 ? simvastatin (ZOCOR) 40 mg tablet Take 1 tablet by mouth daily at bedtime. 90 tablet 3 ? cholecalciferol, Vitamin D3, (VITAMIN D3) 50,000 unit cap capsule Take 1 capsule by mouth once each week. 12 capsule 3 ? COMPOUNDED PRESCRIPTION Standing Protime - Dx A. Fib - please fax results to Dr Duran at [phone] 1 Each 11 ? Syringe with Needle, Safety (BD INTEGRA) 3 mL 22 gauge x 1 1/2 syrg 1 Each once each week. 25 Syringe 1 ? BIPAP BiPAP @ 22/17 cm H2O, BUR 14, humidification. suitable , filters, tubing, humidifier and lifetime supplies. Dx. G47.33 1 Device 0 ? HYDROmorphone (DILAUDID) 4 mg tablet Take 4 mg by mouth twice daily as needed. ? SOCIAL HISTORY: Patient is . He quit smoking in 1981 and reports his alcohol use as none. REVIEW OF SYSTEMS: GENERAL: No weight loss, malaise or fevers HEENT: Negative for frequent or significant headaches, is reported as hard of hearing - does fine for encounter. RESPIRATORY: JHONATAN, using BiPAP. Negative for cough, hemoptysis, wheezing, COPD, dyspnea or shortness of breath CARDIOVASCULAR: Hypertension, a fib on coumadin, HLD GI: The patient states that his appetite has been good. He does get hungry. There has been no nausea, no vomiting. He denies dysphagia and denies odynophagia. There has not been indigestion or heartburn. There has not been regurgitation. Bowel habits have been irregular. There has been diarrhea, as reported above. There has not been constipation. The patient denies rectal bleeding. There has not been melena. No abdominal pain. MUSCULOSKELETAL: Negative for new or worsening joint pain or swelling, back pain or muscle pain SKIN: History of melanoma (LLQ). Now with discoloration of his lower extremities, states he mentioned it to Dr. Sunshine. I recommended he also show jin Cardoza. he agrees PSYCH: Takes Lexapro for anxiety. Negative for sleep disturbance, mood disorder and recent psychosocial stressors. HEMATOLOGY/LYMPHOLOGY Positive for bruises easily since on coumadin ENDOCRINE: Negative for diabetes or thyroid. NEURO: Numbness or tingling of feet All other reviewed and negative other than HPI. ? ? PHYSICAL EXAMINATION: General Appearance: Well appearing, alert, in no acute distress, well-hydrated, well nourished. Skin: Skin color normal. Head: Normocephalic, no obvious abnormalities. Eyes: Anicteric sclera. Pupils are equally round. Oropharynx: Lips, tongue and teeth normal. Neck: No obvious masses. Breathing easily and unlabored. Able to speak in complete sentences. Abdomen: Doesn't appear to be tender. Neurologic: Alert and oriented. Good judgement. Answers apporpriately. ? ? Impression: altered bowel habits 2)history of polyps ? Plan: This patient will be scheduled for a colonoscopy using GoLytely as the prep. The preparation, as well as the procedure, has been explained in detail. The risks, benefits, anticipated outcomes and possible complications, including failure to complete the endoscopy and perforation, were mentioned. ?I explained the procedure in understandable terms and the patient was given printed material concerning the planned procedure. The patient had the opportunity to ask questions concerning the planned procedure. The patient freely consents to the planned procedure. ? As a result of the 04/26/19 order by [facility] of [facility] Director Danay Franklin M.D. to cancel non-essential surgeries that would use PPE, unless special criteria are met, I have reviewed the clinical record for this patient and have determined that the scheduled procedure meets the criteria to go forward because there is a presence of severe symptoms causing an inability to perform activities of daily living. The patient was offered a procedure at a [facility], but requests [facility]. The patient and I have discussed in detail the risk of exposure to and/or potential harm posed by the COVID-19 virus with having a procedure at this time versus the risk of? delaying the procedure. It is not possible to know either the risk of delaying the procedure or chance of getting an infection with perfect accuracy, but I have explained to the patient the measures that are being taken to minimize any potential risk of infection. A joint decision was made between the patient and me?to proceed at this time with the scheduled procedure. ? I have personally interviewed and examined this patient as able using video technology. I spent 25 minutes in [id number] time of the visit in counseling / coordination of care. ? Abby Rowe RN PANEL MACHINE SETTER.RESTAURANT HOSPITALITY MANAGER
[2019-08-16 12:08] VITALS: BP 117/70; PULSE 50; RESP 16; TEMP 36.6; BMI 33.7
[2019-08-16] MEDS: Lactated Ringers 1,000 ML 100 ML IV (12:20)
[2019-08-16 12:40] LABS: Prothrombin Time Fingerstick 14.3 SEC (11.9-14.4)
[2019-08-16 13:28] VITALS: BP 117/70; BP 121/78; PULSE 50; RESP 18; TEMP 36.4; O2SAT 97
[2019-08-16 13:30] VITALS: BP 104/65; BP 117/70; PULSE 49; RESP 18; O2SAT 95
--- NOTE | 2019-08-16 13:30 | OP.CCLET_ITS ---
08/16/2019 Adriano Duran Re : Colonoscopy procedure for Gurinder Broussard Dear Renee This procedure was performed on Friday, August 16, 2019. My impressions and recommendations are as follows: Impressions : - Preparation of the colon was poor. - Non-bleeding internal hemorrhoids. - No specimens collected. Recommendations : - Repeat colonoscopy within 1 year because the bowel preparation was poor. - Return to primary care physician PRN. - Continue present medications. My findings are described in the full procedure note, which is enclosed. If I can be of further assistance, please feel free to contact me at Doctor phone number(s): , Work: . Sincerely, MD Korina Jaimes MD 08/16/2019 1:30:11 PM This report has been signed electronically.
--- NOTE | 2019-08-16 13:30 | OP.COLON_ITS ---
Patient Name: Gurinder Broussard Procedure Date: 08/16/2019 12:44 PM Date of : 1945 Age: 74 Procedure: Colonoscopy Indications: High risk colon cancer surveillance: Personal history of colonic polyps Providers: Korina Dempsey MD Referring MD: Adriano Duran Medicines: See the Anesthesia note for documentation of the administered medications Patient Profile: Refer to note in patient chart for documentation of history and physical. Last Colonoscopy: 5 years ago. Complications: No immediate complications. Procedure: Pre-Anesthesia Assessment: - see anesthesia note After I obtained informed consent, the scope was passed under direct vision. Throughout the procedure, the patient's blood pressure, pulse, and oxygen saturations were monitored continuously. The Colonoscope was introduced through the anus and advanced to the cecum, identified by the appendiceal orifice, ileocecal lip and palpation. The colonoscopy was somewhat difficult due to inadequate bowel prep. The patient tolerated the procedure well. The quality of the bowel preparation was poor. Scope In: 12:50:23 PM Scope Withdrawal Time 0 hours 13 minutes 10 seconds Scope Out: 1:24:09 PM Total Procedure Duration Time 0 hours 33 minutes 46 seconds Findings: The perianal and digital rectal examinations were normal. Pertinent negatives include normal sphincter tone. Non-bleeding internal hemorrhoids were found. Impression: - Preparation of the colon was poor. - Non-bleeding internal hemorrhoids. - No specimens collected. Recommendation: - Repeat colonoscopy within 1 year because the bowel preparation was poor. - Return to primary care physician PRN. - Continue present medications. Procedure Code(s): --- Professional --- 99652, Colonoscopy, flexible; diagnostic, including collection of specimen(s) by brushing or washing, when performed (separate procedure) Diagnosis Code(s): --- Professional --- Z86.010, Personal history of colonic polyps K64.8, Other hemorrhoids CPT copyright 2017 [employer]. All rights reserved. The codes documented in this report are preliminary and upon faculty i on call medical assistant review may be revised to meet current compliance requirements. MD Korina Jaimes MD 08/16/2019 1:30:11 PM This report has been signed electronically. Number of Addenda: 0 Note Initiated On: 08/16/2019 12:44 PM
[2019-08-16 13:35] VITALS: BP 111/73; BP 117/70; PULSE 51; RESP 18; O2SAT 95
[2019-08-16 13:44] VITALS: BP 109/78; BP 117/70; PULSE 51; RESP 18; TEMP 36.3; O2SAT 95
[2019-08-16 14:39] VITALS: BP 117/70
== END 2019-08-16 14:41 | disposition home or self-care (01) ==
LOC: EN 11:51 → AC 11:53
PROVIDERS: Anesthesiology; PCP Family Medicine; Referring Provider Family Medicine; Visit Provider Surgery
PROC: 0DJD8ZZ Inspection of Lower Intestinal Tract, Via Natural or Artificial Opening Endoscopic (ICD-10-PCS; CPT 45378; principal; 2019-08-16 12:55)
DX: K64.8 Other hemorrhoids (principal); Z86.010 Personal history of colon polyps; E78.5 Hyperlipidemia, unspecified; I10 Essential (primary) hypertension; I48.91 Unspecified atrial fibrillation; F41.9 Anxiety disorder, unspecified; F32.9 Major depressive disorder, single episode, unspecified; Z11.59 Encounter for screening for other viral diseases; Z79.01 Long term (current) use of anticoagulants; Z79.899 Other long term (current) drug therapy; Z87.891 Personal history of nicotine dependence; Z95.0 Presence of cardiac pacemaker
CPT/HCPCS: 45378; 36416; 85610; 87635; G2023; J7120; J2405; U0003

== ENCOUNTER 2019-08-19 10:45 | Day surgery (SDC) | payer MEDICARE, OTHER, SELFPAY ==
--- NOTE | 2019-08-19 07:20 | PCM.HP.BLA ---
History and Physical Date of Admission: 08/19/19 HISTORY AND PHYSICAL EXAMINATION This is a repeat H&P from three days ago - patient underwent colonoscopy three days ago, however, his colon cleansing preparation was too poor and therefore he is here again for attempt at colonoscopy again. There are essentially no changes and the H&P is reprinted below for administrative reasons. Date of Admission: 08/16/19 Gurinder Broussard a 74 year old male who is a consultation requested by Dr. Duran for an opinion regarding altered bowel habits - diarrhea. My final recommendations will be communicated back to the requesting physician by way of shared Medical record. The patient denies a family history of colon cancer. ? The patient has been seen previously. I saw him 02/15/16 for this concern. That encounter has been reviewed. Prior to the consultation he had stool studies negative for all but c dif. for which he was treated with a 10 day course of metronidazole. That was followed by oral vancomycin and sent to me. When I saw him he reported having diarrhea up to 6 times a day in spite of the antibiotics. C dif was finally negative on 02/25/16 check and again 08/02/16. ? The patient was seen by ?for colonoscopy?12/20/14 due to a history of polyps. ?The procedure report has been reviewed and findings as follows: Impression: ??? - The entire examined colon is normal. ?- No specimens collected. ? The patient was seen by Dr. Duran on 05/19/19 that I have reviewed. Patient reported diarrhea that was watery the first 8 days out of the last 11. he felt it smelled like C dif. Gas bloating and grumbling. No fever. Dr. Duran prescribed metronidazole. ? On 05/22 the patient called to report the diarrhea was persisting. Dr. Duran ordered stool studies and lab. Shigella spp./Enteroinvasive E.coli DNA ? Not Detected Campylobacter jejuni/coli DNA ? Not Detected Shiga toxin-producing gene(s) ? Not Detected Salmonella spp. DNA ? Not Detected Specimen Request ? Specimen received in Ova and Parasite Kit. Culture ? No parasites seen. C. difficile PCR ? Negative for C. difficile toxin by PCR ? Component Latest Ref Rng & Units 05/24/2019 Specimen Request ? Specimen received in sterile container. Test Results ? Positive for lactoferrin, which may indicate presence of fecal white blood cells (A) ? Dr. Duran made the consultation on 05/27/19, however the patient reported that his stools had been normal the prior 4 days, so the patient held off. On 07/12/19 he sent a message to Dr. Duran that the diarrhea hadn't stopped. ? The patient has a history that includes anxiety, depression and ADD, Afib and bradycardia, HTN and HLD (sees Dr. Cardoza), melanoma, chronic low back pain, hearing loss and elevated blood sugar. ? Presenting complaint: Reporting sudden onset May 07 having continuous diarrhea - maybe 4 times a day... the best it gets is clumped up and loose, then not so for a couple days.... tons of gas... not a lot of cramping. Prior to this he had one to two bowel movements a day. ? Has been on Flagyl without change. Tried Imodium, but loose stools return. Takes Dilaudid intermittently , but that doesn't seem to help with the stool form. ? Has tried to cut of dairy. Drinks coffee black. No supplements. ? He tells me that he had a polyp removed about 10 years ago, and the last colonoscopy was about 5 years ago. ? ? PAST MEDICAL HISTORY ? Anxiety ? ? ADD improved with lexapro ? Atrial fibrillation (HCC) 2012 ? Bradycardia ? ? Chronic low back pain ? ? Depression ? ? Hearing loss ? ? uses hearing aids ? HTN (hypertension) ? ? Hyperglycemia ? ? Hyperglycemia 06/05/2016 ? Hyperlipidemia ? ? Low testosterone ? ? Melanoma of skin (HCC) ~2011 ? removed left lower quadrant ? Obstructive sleep apnea ? ? DME [employer] ? Seborrheic dermatitis ? ? Seizures (HCC) ? ? decided he does not have epilepsy ? Vitamin D deficiency 2014 ? PAST SURGICAL HISTORY ? CHOLECYSTECTOMY ? ? ? COLONOSCOP W/ OR W/O [facility] SPEC ? 12/20/14 ? Colonoscopy ? COLONOSCOPY & POLYPECTOMY ? ? ? ESOPH FUNDOPLASTY LAP ? 2009 ? HEMORRHOIDECTOMY ? 09/23/2017 ? EUA 3 quadrant hemorrhoidectomy [facility] ? KNEE RIGHT OP SURGERY ? ? ? arthroscopy ? LUMBAR SPINE FUSION COMBINED ? ~2008 ? LUMBAR SPINE FUSION COMBINED ? 07/19/14 ? Revision, laminectomy, fusion, fixation L2-S1 ? PACEMAKER (PM) ? ~2010 ? REPAIR BICEPS TENDON RUPTURE ? ? ? right, after a fall ? REPAIR NASAL SEPTUM DEFECT ? ? ? SHOULDER RIGHT OUT PT SURGERY ? ? ? x3 ? FAMILY HISTORY ? Breast Cancer Mother ? ? Psychiatry Mother ? ? bipolar disorder ? Alcohol/Drug Mother ? ? alcohol ? Cancer Father ? ? kidney ? Heart Father ? ? Mitral valve issue ? Diabetes Father ? ? Psychiatry Sister ? ? undiagnosed ? CURRENT MEDICATIONS ? escitalopram oxalate (LEXAPRO) 20 mg tablet Take 1 tablet by mouth once daily. 90 tablet 3 ? lisinopril (ZESTRIL, PRINIVIL) 10 mg tablet Take 1 tablet by mouth once daily. 90 tablet 3 ? warfarin (COUMADIN) 5 mg tablet 5mg with 2.5mg W or as directed 100 tablet 3 ? simvastatin (ZOCOR) 40 mg tablet Take 1 tablet by mouth daily at bedtime. 90 tablet 3 ? cholecalciferol, Vitamin D3, (VITAMIN D3) 50,000 unit cap capsule Take 1 capsule by mouth once each week. 12 capsule 3 ? COMPOUNDED PRESCRIPTION Standing Protime - Dx A. Fib - please fax results to Dr Duran at [phone] 1 Each 11 ? Syringe with Needle, Safety (BD INTEGRA) 3 mL 22 gauge x 1 1/2 syrg 1 Each once each week. 25 Syringe 1 ? BIPAP BiPAP @ 22/17 cm H2O, BUR 14, humidification. suitable , filters, tubing, humidifier and lifetime supplies. Dx. G47.33 1 Device 0 ? HYDROmorphone (DILAUDID) 4 mg tablet Take 4 mg by mouth twice daily as needed. ? SOCIAL HISTORY: Patient is . He quit smoking in 1981 and reports his alcohol use as none. REVIEW OF SYSTEMS: GENERAL: No weight loss, malaise or fevers HEENT: Negative for frequent or significant headaches, is reported as hard of hearing - does fine for encounter. RESPIRATORY: JHONATAN, using BiPAP. Negative for cough, hemoptysis, wheezing, COPD, dyspnea or shortness of breath CARDIOVASCULAR: Hypertension, a fib on coumadin, HLD GI: The patient states that his appetite has been good. He does get hungry. There has been no nausea, no vomiting. He denies dysphagia and denies odynophagia. There has not been indigestion or heartburn. There has not been regurgitation. Bowel habits have been irregular. There has been diarrhea, as reported above. There has not been constipation. The patient denies rectal bleeding. There has not been melena. No abdominal pain. MUSCULOSKELETAL: Negative for new or worsening joint pain or swelling, back pain or muscle pain SKIN: History of melanoma (LLQ). Now with discoloration of his lower extremities, states he mentioned it to Dr. Sunshine. I recommended he also show jin Cardoza. he agrees PSYCH: Takes Lexapro for anxiety. Negative for sleep disturbance, mood disorder and recent psychosocial stressors. HEMATOLOGY/LYMPHOLOGY Positive for bruises easily since on coumadin ENDOCRINE: Negative for diabetes or thyroid. NEURO: Numbness or tingling of feet All other reviewed and negative other than HPI. ? ? PHYSICAL EXAMINATION: General Appearance: Well appearing, alert, in no acute distress, well-hydrated, well nourished. Skin: Skin color normal. Head: Normocephalic, no obvious abnormalities. Eyes: Anicteric sclera. Pupils are equally round. Oropharynx: Lips, tongue and teeth normal. Neck: No obvious masses. Breathing easily and unlabored. Able to speak in complete sentences. Abdomen: Doesn't appear to be tender. Neurologic: Alert and oriented. Good judgement. Answers apporpriately. ? ? Impression: altered bowel habits 2)history of polyps ? Plan: This patient will be scheduled for a colonoscopy using GoLytely as the prep. The preparation, as well as the procedure, has been explained in detail. The risks, benefits, anticipated outcomes and possible complications, including failure to complete the endoscopy and perforation, were mentioned. ?I explained the procedure in understandable terms and the patient was given printed material concerning the planned procedure. The patient had the opportunity to ask questions concerning the planned procedure. The patient freely consents to the planned procedure. ? As a result of the 04/26/19 order by [facility] of Health Director Danay Franklin M.D. to cancel non-essential surgeries that would use PPE, unless special criteria are met, I have reviewed the clinical record for this patient and have determined that the scheduled procedure meets the criteria to go forward because there is a presence of severe symptoms causing an inability to perform activities of daily living. The patient was offered a procedure at a [facility], but requests [facility]. The patient and I have discussed in detail the risk of exposure to and/or potential harm posed by the COVID-19 virus with having a procedure at this time versus the risk of? delaying the procedure. It is not possible to know either the risk of delaying the procedure or chance of getting an infection with perfect accuracy, but I have explained to the patient the measures that are being taken to minimize any potential risk of infection. A joint decision was made between the patient and me?to proceed at this time with the scheduled procedure. ? I have personally interviewed and examined this patient as able using video technology. I spent 25 minutes in [id number] time of the visit in counseling / coordination of care. ? Abby Rowe RN LICENSED PRACTICAL VOCATIONAL NURSE.COMPONENT ENGINEER Addendum entered and electronically signed by Korina Dempsey MD 08/16/19 14:41: unchanged from above
[2019-08-19 11:00] VITALS: BP 148/97; PULSE 101; RESP 16; TEMP 36.4; O2SAT 98; BMI 33.5
[2019-08-19 11:05] LABS: Prothrombin Time Fingerstick 14.6 SEC (11.9-14.4)
[2019-08-19] MEDS: Lactated Ringers 1,000 ML 75 ML IV (11:06)
--- NOTE | 2019-08-19 12:00 | COLBX_PTH ---
PATIENT: ALIA ANDRES LOC: EN U#:[id number] AGE/SX: 74/M ROOM: RE08/19/[address]: Dr. Korina Dempsey MD : 1945 BED: DIS: 08/19/2019 SPEC #: [id number] RECD: 08/19/19 12:55 STATUS: HAILY REEdouard #: [id number] KOLBY: 08/19/19 12:[address]: Korina Dempsey DEPT: SURGICAL PATHOLOGY RECD BY: Mao Anderson ENTERED: 08/22/19 08:56 SP TYPE: COLON BX OT DR: Dr. Adriano Duran MD Tissues: COLON BIOPSY Procedures: Trichrome (control) Special Stain Group II Surgery Specimen Level IV HEADER OPERATION: Colonoscopy (MAC) PRE-OP DIAGNOSIS: Repeat colonoscopy due to poor prep three days ago TISSUE SUBMITTED: Random colonic biopsy MICROSCOPIC DIAGNOSIS Colon, random biopsy: Consistent with lymphocytic colitis. See comment. AM:astrid 08/23/19 COMMENT Trichrome stain with matched control was used in the evaluation of this case. MICROSCOPIC DESCRIPTION Slides are reviewed. GROSS DESCRIPTION Received in fixative is one container labeled with the patient's name and designated random colon biopsy. The specimen consists of multiple irregular fragments of light hines soft tissue that in aggregate measure 2 x 1 x 0.1 cm. The specimen is totally submitted in one cassette. / AM:astrid 08/22/19 TC:3 CPT: 74134, 03888
[2019-08-19 12:35] VITALS: BP 101/63; BP 120/80; PULSE 16; RESP 16; TEMP 36.1; O2SAT 93
[2019-08-19 12:40] VITALS: BP 120/80; BP 99/68; PULSE 50; RESP 16; O2SAT 93
--- NOTE | 2019-08-19 12:41 | OP.COLON_ITS ---
Patient Name: Gurinder Broussard Procedure Date: 08/19/2019 11:51 AM Date of : 1945 Age: 74 Procedure: Colonoscopy Indications: Change in bowel habits Providers: Korina Dempsey MD Referring MD: Korina Dempsey MD Medicines: See the Anesthesia note for documentation of the administered medications Patient Profile: Refer to note in patient chart for documentation of history and physical. Last Colonoscopy: Complications: No immediate complications. Procedure: Pre-Anesthesia Assessment: - see anesthesia note After I obtained informed consent, the scope was passed under direct vision. Throughout the procedure, the patient's blood pressure, pulse, and oxygen saturations were monitored continuously. The pediatric colonoscope was introduced through the anus and advanced to the cecum, identified by the appendiceal orifice, IC valve and transillumination. The colonoscopy was performed without difficulty. The patient tolerated the procedure well. The quality of the bowel preparation was adequate to identify polyps 6 mm and larger in size, technical limitations of aspiration of the scope precluded complete clearance, there was still retained fecal material, however no large obvious masses were noted. Scope In: 11:56:45 AM Scope Withdrawal Time 0 hours 14 minutes 9 seconds Scope Out: 12:30:56 PM Total Procedure Duration Time 0 hours 34 minutes 11 seconds Findings: The perianal and digital rectal examinations were normal. The patient had a redundant transverse colon. Non-bleeding internal hemorrhoids were found. Multiple small and large-mouthed diverticula were found in the sigmoid colon. Biopsies for histology were taken with a cold forceps from the entire colon for evaluation of microscopic colitis. Impression: - Non-bleeding internal hemorrhoids. - Diverticulosis in the sigmoid colon. - specimens taken to rule out colitis Recommendation: - Discharge patient to home (ambulatory). - Resume previous diet. - Continue present medications. - Await pathology results. - My office will set up a [facility] appointment with Lyric Ervin PA-C to discuss pathology results in 1-2 weeks - Repeat colonoscopy. Procedure Code(s): --- Professional --- 22199, Colonoscopy, flexible; with biopsy, single or multiple Diagnosis Code(s): --- Professional --- K64.8, Other hemorrhoids R19.4, Change in bowel habit K57.30, Diverticulosis of large intestine without perforation or abscess without bleeding CPT copyright 2017 [employer]. All rights reserved. The codes documented in this report are preliminary and upon corporate security officer review may be revised to meet current compliance requirements. MD Korina Jaimes MD 08/19/2019 12:41:07 PM This report has been signed electronically. Number of Addenda: 0 Note Initiated On: 08/19/2019 11:51 AM
--- NOTE | 2019-08-19 12:41 | OP.CCLET_ITS ---
08/19/2019 Adriano Duran Re : Colonoscopy procedure for Gurinder Broussard Dear Renee This procedure was performed on Monday, August 19, 2019. My impressions and recommendations are as follows: Impressions : - Non-bleeding internal hemorrhoids. - Diverticulosis in the sigmoid colon. - specimens taken to rule out colitis Recommendations : - Discharge patient to home (ambulatory). - Resume previous diet. - Continue present medications. - Await pathology results. - My office will set up a [facility] appointment with Lyric Ervni PA-C to discuss pathology results in 1-2 weeks - Repeat colonoscopy. My findings are described in the full procedure note, which is enclosed. If I can be of further assistance, please feel free to contact me at Doctor phone number(s): , Work: . Sincerely, MD Korina Jaimes MD 08/19/2019 12:41:07 PM This report has been signed electronically.
[2019-08-19 12:46] VITALS: BP 120/80; BP 124/72; PULSE 52; RESP 16; O2SAT 95
[2019-08-19 12:51] VITALS: BP 120/80; BP 97/65; PULSE 52; RESP 16; O2SAT 96
[2019-08-19 12:52] VITALS: BP 109/53; BP 120/80; PULSE 53; RESP 16; TEMP 36.1; O2SAT 96
== END 2019-08-19 13:17 | disposition home or self-care (01) ==
LOC: EN 10:46 → AC 10:47
PROVIDERS: PCP Family Medicine; Referring Provider Surgery; Visit Provider Surgery
PROC: 0DJD8ZZ Inspection of Lower Intestinal Tract, Via Natural or Artificial Opening Endoscopic (ICD-10-PCS; CPT 45378; principal; 2019-08-19 11:55)
DX: K57.30 Diverticulosis of large intestine without perforation or abscess without bleeding (principal); K64.8 Other hemorrhoids; I10 Essential (primary) hypertension; E78.5 Hyperlipidemia, unspecified; I48.91 Unspecified atrial fibrillation; F41.9 Anxiety disorder, unspecified; E11.9 Type 2 diabetes mellitus without complications; F32.9 Major depressive disorder, single episode, unspecified; Z79.01 Long term (current) use of anticoagulants; Z95.0 Presence of cardiac pacemaker; Z79.899 Other long term (current) drug therapy; Z87.891 Personal history of nicotine dependence
CPT/HCPCS: 45380; 36416; 85610; 88305; 88313; J7120; J2405

== ENCOUNTER 2019-10-17 11:50 | Outpatient (RCR) | payer MEDICARE, OTHER, SELFPAY ==
[2018-12-06 14:52] VITALS: BMI 35.7
[2019-10-17 12:11] LABS: International Normalized Ratio 2.5; Prothrombin Time (Protime)PT. 26.4 SECONDS (11.7-14.9)
== END 2019-10-17 18:00 | disposition home or self-care (01) ==
LOC: LAB 11:50
PROVIDERS: Family Provider Family Medicine; PCP Family Medicine; Referring Provider Internal Medicine Cardiovascular Disease; Visit Provider Internal Medicine Cardiovascular Disease
DX: I48.0 Paroxysmal atrial fibrillation (principal); Z79.01 Long term (current) use of anticoagulants
CPT/HCPCS: 36415; 85610

== ENCOUNTER → 2019-11-21 | Outpatient (CLI) | payer MEDICARE, OTHER, SELFPAY ==
--- NOTE | 2019-11-21 15:45 | RAD_ITS ---
STUDY: X-RAY - THORACIC SPINE REASON FOR EXAM: Male, 74 years old. Pain TECHNIQUE: 3 view(s) of the thoracic spine were obtained. COMPARISON: None. FINDINGS: There is no evidence of fracture or dislocation in the thoracic spine. The vertebral body heights are well-maintained. There are moderate multilevel degenerative changes with disc space narrowing and anterior osteophytes. RAD/Thoracic Spine 3 Views IMPRESSION: No fracture or dislocation in the thoracic spine. Moderate degenerative Electronically Signed: August Card, at 16:20 EDT Tel , Service support ,
== END | disposition home or self-care (01) ==
LOC: RAD 15:44
PROVIDERS: PCP Family Medicine; Referring Provider Nurse Practitioner Family; Visit Provider Nurse Practitioner Family
DX: M54.6 Pain in thoracic spine (principal)
CPT/HCPCS: 72072

== ENCOUNTER 2019-12-21 11:33 | Outpatient (RCR) | payer MEDICARE, OTHER, SELFPAY ==
[2019-12-13 11:30] LABS: Prothrombin Time Fingerstick 25.3 SEC (11.9-14.4)
[2019-12-21 11:45] LABS: Prothrombin Time Fingerstick 13.5 SEC (11.9-14.4)
== END 2019-12-21 18:00 | disposition home or self-care (01) ==
LOC: LAB 11:33
PROVIDERS: Family Provider Family Medicine; PCP Family Medicine; Referring Provider Internal Medicine Cardiovascular Disease; Visit Provider Internal Medicine Cardiovascular Disease
DX: I48.0 Paroxysmal atrial fibrillation (principal); Z79.01 Long term (current) use of anticoagulants
CPT/HCPCS: 36416; 85610

== ENCOUNTER 2020-01-03 10:32 | Emergency (ER) | payer MEDICARE, OTHER, SELFPAY ==
[2019-12-29 10:34] VITALS: BMI 12.6
[2020-01-03 10:33] VITALS: BP 111/55; PULSE 50; RESP 17; TEMP 36.6; O2SAT 94; BMI 33.9
--- NOTE | 2020-01-03 11:07 | US_ITS ---
STUDY: SCROTUM ULTRASOUND REASON FOR EXAM: Male, 74 years old. LT TESTICLE PAIN / SWELLING TECHNIQUE: Ultrasound evaluation of the scrotum was performed with color Doppler and static jasso-scale imaging. COMPARISON: None. FINDINGS: Right testicle measures 4.7 x 3.1 x 2.1 cm and left testicle measures 4.0 x 2.7 x 2.2 cm. Testes are symmetric and homogeneous with normal, symmetric vascularity. No testicular mass is present. Epididymis demonstrate a cyst at the right epididymal head measuring up to 1.4 cm. Small right hydrocele. 4 mm left epididymal head cyst and small to moderate left hydrocele. No varicocele is demonstrated. US/Testicular with Arterial Flow IMPRESSION: Homogeneous normally vascularized testicles. Small bilateral epididymal head cysts and hydroceles as above. END OF IMPRESSION: Electronically Signed: Aidan Perdomo, at 13:18 EST Tel , Service support ,
--- NOTE | 2020-01-03 11:08 | CT_ITS ---
STUDY: CTA CHEST REASON FOR EXAM: Male, 74 years old. RT UPPER BACK PAIN. PACE MAKER RADIATION DOSAGE (If Supplied By Facility): CTDIvol = ( 13.71 ) mGy, DLP = ( 677.58 ) mGycm TECHNIQUE: The examination was performed with the intravenous administration of IV 100mL Isovue-370. Post-processing of the angiographic images was performed, with multiplanar reformation and 3D reconstruction. Individualized dose optimization techniques were used for this CT. COMPARISON: None. FINDINGS: Small right thyroid nodule. Small right thyroid nodule. Left cardiac device. Normal enhancement of the main pulmonary artery and right and left pulmonary arteries. Normal enhancement of the bilateral peripheral pulmonary arteries. There is no demonstrated pulmonary embolism. Normal thoracic aorta and visualized great vessels. There is no demonstrated aortic dissection. Normal heart and pericardium. Normal mediastinum. Normal hilar regions. Normal visualized trachea and bronchi. The lungs are well expanded. 4 mm pleural-based right lower lobe nodule. Mild to moderate emphysematous disease. Normal pleura. Normal chest wall structures. Normal osseous structures. Partially visualized lumbar spinal hardware. The liver demonstrates several hypodense lesions which are well-circumscribed and most likely represent cysts however they are incompletely characterized due to lack of intravenous contrast. CT/CTA Chest W/WO Contrast IMPRESSION: No demonstrated pulmonary embolism or arterial dissection. Small right thyroid nodule. Recommend dedicated thyroid ultrasound. 4 mm pleural-based right lung nodule. Fleischner Society Recommendations for Follow-up and Management of Nodules Smaller than 8 mm Detected Incidentally at Nonscreening CT. Nodule size < or = 4 mm: Low-Risk Patient - No follow-up needed. High-Risk Patient - Follow-up CT at 12 months; if unchanged, no further follow-up. Nodule size > 4-6 mm: Low-Risk Patient - Follow-up CT at 12 months; if unchanged, no further follow-up. High-Risk Patient - Initial follow-up CT at 6-12 months then at 18-24 months if no change. Nodule size > 6-8 mm: Low-Risk Patient - Initial follow-up CT at 6-12 months then at 18-24 months if no change. High-Risk Patient - Initial follow-up CT at 3-6 months then at 9-12 and 24 months if no change. Nodule size > 8 mm: Low-Risk Patient - Follow-up CT at around 3,9 and 24 months. Dynamic contrast-enhanced CT, PET and/or biopsy. High-Risk Patient - Same as for low-risk patient. Low-Risk = Minimal or absent history of smoking and of other known risk factors. High-Risk = History of smoking or of other known risk factors. Electronically Signed: Aidan Perdomo, at 13:00 EST Tel , Service support ,
--- NOTE | 2020-01-03 11:10 | ED.DCSUM_ITS ---
History of Present Illness Chief Complaint: Male Pain/Injury Informant: Patient Onset: Weeks Maximum Severity: Mild Narrative: The patient has 2 complaints, 1 is right parascapular pain is been gone for weeks worse when he moves turns breathes, no fever no cough no history of the above, The second complaint is left testicular pain that began yesterday at 5 PM and persisted he feels like the left testicle swollen, he has no history of tra radha issues or complaints he has no complaints related to bowel or bladder habits was have been normal, He has no history of [place] PE or DVT he does have history of lumbar spine surgery he takes Dilaudid 5 mg as needed at home related to allergies to morphine and ineffectiveness of morphine He has had no coronavirus exposures Past Medical History - Allergies and Home Meds Allergies/Adverse Reactions: Allergies chlorhexidine Allergy (Severe, Verified 01/03/20 10:33) Rash codeine Allergy (Severe, Verified 01/03/20 10:33) Rash morphine Allergy (Severe, Verified 01/03/20 10:33) Rash venom-honey bee [bee venom (honey bee)] Allergy (Severe, Verified 01/03/20 10:33) Anaphylaxis midazolam [From Versed] Adverse Reaction (Severe, Verified 01/03/20 10:33) Mental status change Primary Care Physician: Alfred Amin MD [STAFF PHYSICIAN] - Adriano Duran MD [Primary Care Provider] - Past Medical History: - Smoking Status: Former smoker Review of Systems ROS: - Bar spine surgery and as above Cardiovascular: Reports: Chest pain Respiratory: Reports: Dyspnea Genitourinary: Reports: - - Left testicular pain Physical Exam Vital Signs/Narrative: Vital Signs Temp Pulse Resp BP Pulse Ox 01/03/20 10:33 97.8 F 50 L 17 111/55 L 94 General: Well nourished, Well developed, No Acute Distress Head: Normocephalic, Atraumatic Eyes: Perrl, EOMI ENT: Moist mucous membranes, No rhinorrhea Neck: Supple, Nontender Cardiovascular: Regular rate, Regular rhythm, No murmurs Respiratory: No distress, CTA bilaterally, Chest nontender Abdomen: Soft, Nontender, Nondistended, Normal bowel sounds : - - Has some swelling related to the left testicle that seems to be normal position, the pain is diffuse the right testicle is unremarkable, there is no adenopathy no penile drainage no signs of foreign years gangrene Back: Nontender, Normal Inspection Extremities: Nontender, No edema, - - He complains of pain to the right parascapular area that is worse when he sits forward moves his arm and otherwise intermittently is troubling to him without specific activity Skin: Normal color, No rash Neurological: Alert, Oriented x3, Cranial nerves II-XII grossly intact, Normal Strength, Normal Sensation Psychological: Normal affect, Normal Mood Diagnostic/Tx/Re-eval - Medical Decision Making The patient's differential is rather broad as he has 2 different complaints the left testicular pain could certainly could represent torsion orchitis epididymitis other conditions, the right parascapular pain has a broad differential to include pneumonia PE musculoskeletal etc. given all the above he will go undergo comprehensive valuation treatment management pain control Patient's ED screening evaluation was all generally unremarkable, CTA of the chest showed nothing acute see that report, labs were generally unremarkable see those reports, ultrasound of the testicle shows normal flow no signs of mass tumor or torsion Urine cultures were sent he was started on IV Rocephin IV levofloxacin, he will be discharged to continue levofloxacin Naprosyn he will follow-up with in the next few days we discussed the long differential of the testicular discomfort and pain in the concept of epididymal orchitis, I have also explained to him that the etiology of the right parascapular pain remains unclear and he needs further outpatient management by his providers. He is comfortable with discharge home he does not wish to be admitted and will follow-up and return for change in symptoms he does take Dilaudid 5 mg by his outpatient providers for chronic back pain he can use as a rescue medicine Note the patient has a pacemaker he is scheduled to have the pacemaker replaced due to battery issues January 15 he is intermittently bradycardic to about 40 he has no symptoms or complaints and bradycardia something he is well aware of and he has again no symptoms or complaints related to the above Home stable Final impression left epididymis orchitis, right parascapular pain etiology unclear ED Disposition - Plan for ED Patient: Diagnosis: Left epididymal orchitis, Right parascapular pain Instructions: ED Epididymitis, ED Orchitis Prescriptions: Levofloxacin [Levaquin] 750 mg PO DAILY #7 tab Prescription Printed Naproxen [Naprosyn] 500 mg PO BID PRN #20 tab Prescription Printed Referrals: Adriano Duran MD [Primary Care Provider] - Alfred Amin MD [STAFF PHYSICIAN] -
[2020-01-03] MEDS: Ondansetron 4 MG/2 ML Vial IV (11:20)
[2020-01-03] MEDS: 0.9% Normal Saline 1,000 ML 125 ML IV (11:21)
[2020-01-03 11:22] LABS: Absolute Lymphocyte Count 1.19 X10^3/uL (0.83-4.51); Absolute Neutrophil Count 3.7 X10^3/uL (2.0-7.7); Basophil# 0.03 X10^3/uL; Basophil% 0.5 % (0-1); Eosinophil# 0.17 X10^3/uL; Eosinophils% 2.9 % (0-5); Hematocrit 47.2 % (40-54); Hemoglobin 15.5 g/dL (13.0-16.5); Lymphocyte # 1.19 X10^3/ul (4.0); Lymphocyte % 20.6 % (19-41); Mean Corp Hgb Conc 32.8 g/dL (32-36); Mean Corpuscular Hgb 30.5 pg (27.0-32.0); Mean Corpuscular Volume 92.9 fL (80-94); Mean Platelet Vol. 9.8 fl (6.2-12.0); Monocyte# 0.66 X10^3/uL; Monocyte% 11.4 % (0-10); NRBC Flagged by Analyzer 0 % (0-5); Neutrophil # 3.72 X10^3/uL (2.7-7.7); Neutrophil % 64.4 % (47-70); Platelet Count 113 K/mm3 (150-450); RBC Distribution Width CV 12.4 % (11.6-14.6); RBC Distribution Width SD 42.6 fl (35.1-43.9); Red Blood Count 5.08 M/mm3 (4.6-6.2); White Blood Count 5.8 K/mm3 (4.4-11.0)
[2020-01-03] MEDS: HYDROmorphone 1 MG/ML Syringe IV (11:22)
[2020-01-03 11:27] VITALS: BP 111/77; PULSE 50; RESP 18; O2SAT 97
[2020-01-03 11:38] LABS: ALB/GLOB Ratio 1.1 RATIO (0.9-2.4); AST(SGOT) 17 U/L (15-37); Alanine Aminotransfer ALT/SGPT 34 U/L (16-61); Albumin, Serum 3.5 g/dL (3.2-5.0); Alkaline Phosphatase 96 U/L (45-117); Anion Gap 2 (5-15); BUN 23 mg/dL (7-18); BUN/Creat Ratio 18.3 RATIO (10-20); Calcium,Total 8.6 mg/dL (8.5-10.1); Chloride 104 mmol/L (98-107); Creatinine, Serum 1.26 mg/dL (0.70-1.30); EST Glomerular Filtration Rate 59 mL/min (>60); Est Glom Filt Rate - Afr Amer 72 mL/min (>60); Estimated Creatinine Clearance 51.44 ml/min; Globulin 3.1 g/dL (2.2-4.2); Glucose 92 mg/dL (74-106); Lipase 64 U/L (73-393); Potassium 4.3 mmol/L (3.5-5.1); Protein, Total 6.6 g/dL (6.4-8.2); Sodium Level 138 mmol/L (136-145)
[2020-01-03 11:39] VITALS: BP 91/58; PULSE 64; RESP 20; O2SAT 94
[2020-01-03 11:59] LABS: Bacteria 0 SEEN /hpf (None Seen); Mucous, Urine 0 SEEN /hpf (<or=2+); Red Blood Cells-Urine 0 SEEN /hpf (0-5); Squamous Epithelial Cells - UA 0 SEEN /hpf (0-5)
[2020-01-03 12:05] LABS: Color, Urine Yellow (Yellow); Glucose, Dipstick Normal (Normal); Ketone-Dipstick Negative (Negative); Leukocyte Esterase-Dipstick 25 /ul (Negative); Nitrite-Dipstick Negative (Negative); Occult Blood-Urine Negative /ul (Negative); Protein-Dipstick Negative (Negative); Urine Bilirubin Dipstick Negative (Negative); Urine Clarity Clear (Clear); Urine Urobilinogen Normal (Normal)
[2020-01-03 12:12] LABS: White Blood Cells 0-5 SEEN /hpf (0-5)
--- NOTE | 2020-01-03 13:58 | ED.RN ---
nancy called saying pt has had several low hr in 40's and that was supposed to have pacemaker batteries changed last week but didnt. dr. gallagher aware and pt only c/o feeling tired past week.
[2020-01-03] MEDS: levoFLOXacin IV 750 MG/150 ML BAG 100 MG IV (14:29)
[2020-01-03] MEDS: Ketorolac 30 MG/ML Syringe IV (14:30)
[2020-01-03] MEDS: Ceftriaxone 1 GM/50 ML BAG IV (15:47)
== END 2020-01-03 16:24 | disposition home or self-care (01) ==
LOC: ED 13:20
PROVIDERS: Emergency Provider Emergency Medicine; PCP Family Medicine
DX: N45.2 Orchitis (principal); M54.6 Pain in thoracic spine; Z87.891 Personal history of nicotine dependence
CPT/HCPCS: 71275; 76870; 80053; 81001; 83690; 85025; 87086; 93976; 96361; 96365; 96375; 99283; J7030; Q9967; A4216; J2405

== ENCOUNTER 2020-01-16 09:47 | Day surgery (SDC) | payer MEDICARE, OTHER, SELFPAY ==
[2019-12-15 13:11] VITALS: BMI 33.7
--- NOTE | 2019-12-15 14:10 | RAD_ITS ---
HISTORY: ppm generator change, no current chest complaints ADDITIONAL HISTORY: None provided. COMPARISON: 09/17/2018. [employer] image from thoracic spine CT 11/28/2013 EXAMINATION/TECHNIQUE: XR Chest 2 Views Number of images including paperwork: 3 FINDINGS: LUNGS AND PLEURA: No consolidation, mass or pleural effusion. Hyperinflation. Minimal linear basilar subsegmental atelectasis versus scarring. CARDIAC SILHOUETTE: Unremarkable. MEDIASTINUM AND [place]: Aortic tortuosity. UPPER ABDOMEN: Unremarkable. SKELETON AND SOFT TISSUES: No acute findings. Degenerative changes. Sclerotic densities in the left proximal humerus similar to 2014. Old right posterior rib fractures. OTHER DEVICES AND HARDWARE: Pacemaker with left-sided generator. Right upper quadrant surgical clips. Staple partially visualized projecting over the right shoulder. Lumbar hardware partially visible. RAD/Chest PA and Lateral IMPRESSION: No acute cardiopulmonary abnormality. Sclerotic densities in the left proximal humerus suggestive of chondroid matrix lesion, appearance similar to 2014. Recommend further evaluation if there is pain referable to this region. at 0735 Reported and signed by: Phyllis Dover MD Electronically Signed: Phyllis Dover MD at 7:35 EST Tel , Service support ,
[2019-12-15 14:21] LABS: Bacteria 0 SEEN /hpf (None Seen); Mucous, Urine 0 SEEN /hpf (<or=2+); Red Blood Cells-Urine 0 SEEN /hpf (0-5); Squamous Epithelial Cells - UA 0 SEEN /hpf (0-5); White Blood Cells 0 SEEN /hpf (0-5)
[2019-12-15 15:53] LABS: Hemoglobin 15.3 g/dL (13.0-16.5); Mean Corp Hgb Conc 32.6 g/dL (32-36); Mean Corpuscular Hgb 30.1 pg (27.0-32.0); Mean Corpuscular Volume 92.5 fL (80-94); Mean Platelet Vol. 10.8 fl (6.2-12.0); Platelet Count 151 K/mm3 (150-450); RBC Distribution Width CV 12.2 % (11.6-14.6); RBC Distribution Width SD 42.1 fl (35.1-43.9); Red Blood Count 5.08 M/mm3 (4.6-6.2); White Blood Count 4.7 K/mm3 (4.4-11.0)
[2019-12-15 16:00] LABS: International Normalized Ratio 2.5; Prothrombin Time (Protime)PT. 26.3 SECONDS (11.7-14.9)
[2019-12-15 16:23] LABS: Color, Urine Straw (Yellow); Glucose, Dipstick Normal (Normal); Ketone-Dipstick Negative (Negative); Leukocyte Esterase-Dipstick Negative /ul (Negative); Nitrite-Dipstick Negative (Negative); Occult Blood-Urine Negative /ul (Negative); Protein-Dipstick Negative (Negative); Specific Gravity, Urine 1.005 (1.002-1.030); Urine Bilirubin Dipstick Negative (Negative); Urine Clarity Clear (Clear); Urine Urobilinogen Normal (Normal); Urine pH 6.5 (5.0 - 8.0)
[2019-12-15 16:24] LABS: Anion Gap 5 (5-15); BUN 20 mg/dL (7-18); BUN/Creat Ratio 16.5 RATIO (10-20); Chloride 106 mmol/L (98-107); Creatinine, Serum 1.21 mg/dL (0.70-1.30); EST Glomerular Filtration Rate 62 mL/min (>60); Est Glom Filt Rate - Afr Amer 75 mL/min (>60); Glucose 77 mg/dL (74-106); Potassium 3.6 mmol/L (3.5-5.1); Sodium Level 140 mmol/L (136-145)
[2019-12-29 10:34] VITALS: BMI 12.6
--- NOTE | 2019-12-30 06:08 | HP_ITS ---
HPI HPI History of Present Illness Details: ALIA ANDRES, is a 74 year old white male who presents to the office today for outpatient cardiovascular follow up for concerns of paroxysmal atrial fibrillation, sick sinus syndrome, permanent pacemaker placement, CAD-reported as non-hemodynamically significant, superimposed upon hyperlipidemia and hypertension. He has been previously followed by the [facility] system. Overall from a cardiac standpoint he states that he continues to wake up every morning which is a good thing. He does not describe any ongoing symptoms of classic angina pectoris at rest or with exertion. He has not had any acute orthopnea or PND. There has been no near syncope or syncope. He has had his generator evaluated. He is in need for an upcoming generator change. This is tentatively scheduled for 12-30-2019. He did have an ECG in the office today. He was noted to have an underlying electronic atrial paced rhythm with low voltage QRS in the limb leads with nonspecific ST/T wave abnormality. Intake Vital Signs 12/15/19 Height 5 ft 9 in 12/15/19 Weight: 236 lb 12/15/19 BMI 34.8 12/15/19 BP 118/70 12/15/19 Blood Pressure Location Lt brachial 12/15/19 Position Sitting 12/15/19 Respiration 18 12/15/19 Pulse 60 12/15/19 Pulse Source Auscultation Intake Visit Reasons: 5m fu PPM check @ 12:30 Bar Assistant Required: No Accompanied by: Self Allergies chlorhexidine Allergy (Severe, Verified 12/15/19 13:26) Rash codeine Allergy (Severe, Verified 12/15/19 13:26) Rash morphine Allergy (Severe, Verified 12/15/19 13:26) Rash venom-honey bee [bee venom (honey bee)] Allergy (Severe, Verified 12/15/19 13:26) Anaphylaxis midazolam [From Versed] Adverse Reaction (Severe, Verified 12/15/19 13:26) Mental status change Medications Escitalopram Oxalate [Lexapro] 20 mg PO DAILY 11/28/13 [History Confirmed 12/15/19] Simvastatin [Zocor] 40 mg PO QHS 11/28/13 [History Confirmed 12/15/19] cholecalciferol (vitamin D3) 1,250 mcg (50,000 unit) capsule 50,000 unit PO QWEEK 11/10/17 [History Confirmed 12/15/19] hydromorphone 4 mg tablet 4 mg PO BID PRN tab 11/10/17 [History Confirmed 12/15/19] melatonin 10 mg tablet 10 mg PO HS PRN 07/19/18 [History Confirmed 12/15/19] lisinopril 20 mg tablet 10 mg PO QHS tab 07/11/19 [History Confirmed 12/15/19] trazodone 50 mg tablet 25 mg PO QHS PRN tab 07/11/19 [History Confirmed 12/15/19] warfarin 5 mg tablet 5 mg PO DAILY #90 tab 11/14/19 [Rx Confirmed 12/15/19] baclofen 10 mg tablet 10 mg PO DAILY 12/15/19 [History Confirmed 12/15/19] pregabalin 75 mg capsule 75 mg PO DAILY 12/15/19 [History Confirmed 12/15/19] [facility] Medical History 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) Bradycardia (Chronic) Paroxysmal atrial fibrillation (Chronic) JHONATNA treated with BiPAP (Chronic) Essential hypertension (Chronic) Hyperlipemia (Chronic) Presence of permanent cardiac pacemaker (Chronic ~11/12/09) Sick sinus syndrome (Chronic) Atherosclerotic heart disease of [place] coronary artery without angina pectoris (Chronic) Seizures (Acute) Surgical History History of arthroscopy of right knee (Resolved) History of cholecystectomy (Resolved) History of hemorrhoidectomy (Resolved) History of lumbar spinal fusion (Resolved) History of nasal septoplasty (Resolved) History of shoulder surgery (Resolved) Family History Father Mitral valve disease Diabetes Cancer Mother Cancer Social History (Updated 12/15/19 @ 14:[address] Riley Cardoza MD) Smoking Status: Former smoker alcohol intake: current details: occasional substance use type: does not use ROS Const Const: Positive for fatigue (increased); negative for weakness, frequent falls, excessive sweating, weight gain or weight loss Eyes Eyes: Negative for transient loss of vision, blurry vision or change in vision ENT ENT: Positive for dizziness (in the am ); negative for balance problems Cardio Chest Pain: No Palpitations: No Edema: None Muscle aches with walking: None Resp Respiratory: Positive for SOB with activity (increased); negative for SOB at rest GI GI: Negative vomiting or vomiting blood/hematemesis : Negative for hematuria Musc Musc: Positive for joint pain (bilat knees); negative for muscle aches/ myalgia, muscle weakness or balance problems Skin Skin: Negative non-healing lesions or rash Neuro Neuro: Positive for dizziness (in the am ) and lightheadedness (in the am); negative for orthostatic symptoms, frequent falls, weakness or blurry vision Bassam Hematologic/Lymphatic: Negative for easy bleeding Endo Endo: Positive for fatigue (increased); negative for excessive sweating Psych Psych: Negative for anxiety or depression Allergy Allergy/Immunology: Negative for hives, Negative for rash Cardiology Exam Const Appearance: cooperative, healthy appearing, comfortable, no acute distress, well developed and well groomed Nutritional Appearance: overweight Orientation: alert, awake and oriented x3 Head Head: normal to inspection, normocephalic and atraumatic Ears: hearing grossly normal bilaterally Nose: external nose normal Face and Sinus: face symmetric Eyes Eyelids: eyelids normal Conjunctivae: conjunctivae normal Pupils: PERRL EOM: EOM intact bilaterally Neck Neck: normal visual inspection and full ROM Carotids: normal carotid upstroke Chest Chest inspection: normal inspection of the chest, symmetric chest movement and Pacemaker/ICD Yes left pectoral incision Auscultation: Bilateral: Clear to Auscultation Cardio Palpation: normal PMI Rate: regular rate Rhythm: regular rhythm and ectopic beats Heart sounds: S1 normal and S2 normal GI GI: normal to inspection, soft and bowel sounds present Neuro General: alert, awake and oriented x3 Skin Skin: no rashes or lesions noted Extremities Pulses: Normal: Right Radial Pulse, Left Radial Pulse Lower Extremity Edema: None: Bilateral Psych Psychological: normal affect Assessment & Plan 1. Atherosclerosis of [place] coronary artery of [place] heart without angina pectoris I25.10 Mild Plan At the present time he appears to be doing well with no acute symptoms or adverse events. He will continue medical therapy. 2. Paroxysmal atrial fibrillation I48.0 Plan He does have a history of PAF. He will continue medical therapy with interruption of his anticoagulant therapy as deemed appropriate for his upcoming noncardiac and cardiac procedures. 3. Sick sinus syndrome I49.5 Plan He has sick sinus syndrome. He has been on medical therapy and has a PPM in place. 4. Presence of permanent cardiac pacemaker Z95.0 BSX, S603 [employer] 60 # [id number]; Lead [employer] [address] [facility] [employer] #[id number] Plan He is in need of an upcoming PPM generator change. This is tentatively scheduled for 12-30-2019. 5. Hyperlipidemia, unspecified hyperlipidemia type E78.5 Plan His lipid labs from 07-19-2019 were reviewed. His total cholesterol was 152 with an LDL of 81 and an HDL of 49. His triglycerides were 109. He will continue evaluation and care as deemed appropriate. 6. Essential hypertension I10 Plan His blood pressure appears to be under reasonably good control. He will continue medical therapy. 7. 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 Plan Detail Follow Up 6 Months (with PFM) Coding Level of Care Code Off vis,est,level 4 Diagnoses Atherosclerosis of [place] coronary artery of [place] heart without angina pectoris I25.10 ??[place] vs. 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 Based upon their conclusion it was a technically difficult exam due to body habitus, the left ventricle demonstrated an LVEF of 68% with moderate concentric left ventricular hypertrophy, the left atrium was mildly enlarged, there were no significant valvular abnormalities reported. Pharmacologic stress nuclear imaging study on 05/07/2017 Stress protocol: Resting EKG demonstrates sinus bradycardia with a rate of 58 bpm occasional premature atrial complexes noted. 0.4 mg regadenoson was infused per usual protocol followed by rapid intravenous saline flush injection. Continuous EKG monitoring was performed. Patient maintained sinus rhythm throughout the recording with frequent premature ventricular complexes. The maximum heart rate attained was 61 beats minute which was 40% maximum predicted heart rate the maximum workload attained was 1 metabolic equivalent. At rest there were no ST or T-wave changes noted suggest abnormal flow reserve at peak infusion no ST or T-wave changes were noted to suggest abnormal flow reserve. The resting blood pressure was 140/80 mmHg. Myocardial perfusion protocol. 14.8 mCi of technetium 99m sestamibi was injected at rest. 0.4 mg of regadenoson was infused per usual protocol. Peak infusion 44.3 mCi of technetium 99m sestamibi was injected stress images were obtained stress and rest images were reconstructed and compared in the short axis vertical long and horizontal long axis. Gated images were also obtained. Perfusion SPECT analysis. Review of the stress images demonstrate normal uptake of tracer noted in all areas of the myocardium. The resting images similarly demonstrate normal uptake of tracer noted in all areas myocardium. There is a small portion of the apex which has a perfusion defect noted on the stress and resting images to a similar extent. The above is not suggestive of ischemia or previous infarct cannot be completely excluded or apical pacemaker activation may also be responsible. Gated SPECT analysis: The gated ejection fraction is noted to be 58%. Conclusion Probably normal pharmacologic myocardial perfusion stress test. Preserved ejection fraction. Stress Echo: 09/18/2018 Interpretation Summary The estimated ejection fraction is 65 %. Normal, adequate, dobutamine echocardiogram. Negative for ischemia by EKG and echocardiographic criteria. No anginal symptoms noted. Patient developed SVT during diffusion putamina infusion which converted to atrial fibrillation with RVR interspersed with paced ventricular beats. No associated wall motion abnormalities noted. Final LVEF is 75%. Test terminated due to attainment target heart rate. Despite several minutes post procedure patient remained in atrial fibrillation and is on anticoagulation. He has a history of paroxysmal atrial fibrillation. Decreased sensitivity due to poor echo windows requiring Definity enhancing agent. No complications. The study was technically difficult. Contrast injection was performed. Permanent pacemaker: [employer]: Model number: [id number] [employer] 60: Serial number: [id number]: Implant date of 11/12/2017 Labs LDL Cholesterol 81 mg/dL (0-130) 07/19/19 HDL Cholesterol 49 mg/dL (40-) 07/19/19 Triglycerides 109 mg/dL (-199) 07/19/19 VLDL Cholesterol 22 mg/dL (5-40) 07/19/19 Diagnostics Electrocardiogram 12/15/19 Stress Echocardiogram 09/18/18 Stress Test Nuclear Medicine 05/07/17 Stress Test 05/07/17 Pacemaker Check 12/15/19 Chest X-Ray 09/17/18
[2020-01-11 10:55] VITALS: BMI 34.4
--- NOTE | 2020-01-16 06:00 | HP_ITS ---
HPI HPI History of Present Illness Details: ALIA ANDRES, is a 74 year old white male who presents to the office today for outpatient cardiovascular follow up for concerns of paroxysmal atrial fibrillation, sick sinus syndrome, permanent pacemaker placement, CAD-reported as non-hemodynamically significant, superimposed upon hyperlipidemia and hypertension. He has been previously followed by the [facility] system. Overall from a cardiac standpoint he states that he continues to wake up every morning which is a good thing. He does not describe any ongoing symptoms of classic angina pectoris at rest or with exertion. He has not had any acute orthopnea or PND. There has been no near syncope or syncope. He has had his generator evaluated. He is in need for an upcoming generator change. This is tentatively scheduled for 12-30-2019. He did have an ECG in the office today. He was noted to have an underlying electronic atrial paced rhythm with low voltage QRS in the limb leads with nonspecific ST/T wave abnormality. Intake Vital Signs 12/15/19 Height 5 ft 9 in 12/15/19 Weight: 236 lb 12/15/19 BMI 34.8 12/15/19 BP 118/70 12/15/19 Blood Pressure Location Lt brachial 12/15/19 Position Sitting 12/15/19 Respiration 18 12/15/19 Pulse 60 12/15/19 Pulse Source Auscultation Intake Visit Reasons: 5m fu PPM check @ 12:30 Film Cutter Required: No Accompanied by: Self Allergies chlorhexidine Allergy (Severe, Verified 12/15/19 13:26) Rash codeine Allergy (Severe, Verified 12/15/19 13:26) Rash morphine Allergy (Severe, Verified 12/15/19 13:26) Rash venom-honey bee [bee venom (honey bee)] Allergy (Severe, Verified 12/15/19 13:26) Anaphylaxis midazolam [From Versed] Adverse Reaction (Severe, Verified 12/15/19 13:26) Mental status change Medications Escitalopram Oxalate [Lexapro] 20 mg PO DAILY 11/28/13 [History Confirmed 12/15/19] Simvastatin [Zocor] 40 mg PO QHS 11/28/13 [History Confirmed 12/15/19] cholecalciferol (vitamin D3) 1,250 mcg (50,000 unit) capsule 50,000 unit PO QWEEK 11/10/17 [History Confirmed 12/15/19] hydromorphone 4 mg tablet 4 mg PO BID PRN tab 11/10/17 [History Confirmed 12/15/19] melatonin 10 mg tablet 10 mg PO HS PRN 07/19/18 [History Confirmed 12/15/19] lisinopril 20 mg tablet 10 mg PO QHS tab 07/11/19 [History Confirmed 12/15/19] trazodone 50 mg tablet 25 mg PO QHS PRN tab 07/11/19 [History Confirmed 12/15/19] warfarin 5 mg tablet 5 mg PO DAILY #90 tab 11/14/19 [Rx Confirmed 12/15/19] baclofen 10 mg tablet 10 mg PO DAILY 12/15/19 [History Confirmed 12/15/19] pregabalin 75 mg capsule 75 mg PO DAILY 12/15/19 [History Confirmed 12/15/19] [facility] 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) Bradycardia (Chronic) Paroxysmal atrial fibrillation (Chronic) JHONATAN treated with BiPAP (Chronic) Essential hypertension (Chronic) Hyperlipemia (Chronic) Presence of permanent cardiac pacemaker (Chronic ~11/12/09) Sick sinus syndrome (Chronic) Atherosclerotic heart disease of [place] coronary artery without angina pectoris (Chronic) Seizures (Acute) Surgical History History of arthroscopy of right knee (Resolved) History of cholecystectomy (Resolved) History of hemorrhoidectomy (Resolved) History of lumbar spinal fusion (Resolved) History of nasal septoplasty (Resolved) History of shoulder surgery (Resolved) Family History Father Mitral valve disease Diabetes Cancer Mother Cancer Social History (Updated 12/15/19 @ 14:[address] Riley Cardoza MD) Smoking Status: Former smoker alcohol intake: current details: occasional substance use type: does not use ROS Const Const: Positive for fatigue (increased); negative for weakness, frequent falls, excessive sweating, weight gain or weight loss Eyes Eyes: Negative for transient loss of vision, blurry vision or change in vision ENT ENT: Positive for dizziness (in the am ); negative for balance problems Cardio Chest Pain: No Palpitations: No Edema: None Muscle aches with walking: None Resp Respiratory: Positive for SOB with activity (increased); negative for SOB at rest GI GI: Negative vomiting or vomiting blood/hematemesis : Negative for hematuria Musc Musc: Positive for joint pain (bilat knees); negative for muscle aches/ myalgia, muscle weakness or balance problems Skin Skin: Negative non-healing lesions or rash Neuro Neuro: Positive for dizziness (in the am ) and lightheadedness (in the am); negative for orthostatic symptoms, frequent falls, weakness or blurry vision Bassam Hematologic/Lymphatic: Negative for easy bleeding Endo Endo: Positive for fatigue (increased); negative for excessive sweating Psych Psych: Negative for anxiety or depression Allergy Allergy/Immunology: Negative for hives, Negative for rash Cardiology Exam Const Appearance: cooperative, healthy appearing, comfortable, no acute distress, well developed and well groomed Nutritional Appearance: overweight Orientation: alert, awake and oriented x3 Head Head: normal to inspection, normocephalic and atraumatic Ears: hearing grossly normal bilaterally Nose: external nose normal Face and Sinus: face symmetric Eyes Eyelids: eyelids normal Conjunctivae: conjunctivae normal Pupils: PERRL EOM: EOM intact bilaterally Neck Neck: normal visual inspection and full ROM Carotids: normal carotid upstroke Chest Chest inspection: normal inspection of the chest, symmetric chest movement and Pacemaker/ICD Yes left pectoral incision Auscultation: Bilateral: Clear to Auscultation Cardio Palpation: normal PMI Rate: regular rate Rhythm: regular rhythm and ectopic beats Heart sounds: S1 normal and S2 normal GI GI: normal to inspection, soft and bowel sounds present Neuro General: alert, awake and oriented x3 Skin Skin: no rashes or lesions noted Extremities Pulses: Normal: Right Radial Pulse, Left Radial Pulse Lower Extremity Edema: None: Bilateral Psych Psychological: normal affect Assessment & Plan 1. Atherosclerosis of [place] coronary artery of [place] heart without angina pectoris I25.10 Mild Plan At the present time he appears to be doing well with no acute symptoms or adverse events. He will continue medical therapy. 2. Paroxysmal atrial fibrillation I48.0 Plan He does have a history of PAF. He will continue medical therapy with interruption of his anticoagulant therapy as deemed appropriate for his upcoming noncardiac and cardiac procedures. 3. Sick sinus syndrome I49.5 Plan He has sick sinus syndrome. He has been on medical therapy and has a PPM in place. 4. Presence of permanent cardiac pacemaker Z95.0 BSX, S603 [employer] 60 # [id number]; Lead 1 [employer] [address] [facility] [employer] #[id number] Plan He is in need of an upcoming PPM generator change. This is tentatively scheduled for 12-30-2019. 5. Hyperlipidemia, unspecified hyperlipidemia type E78.5 Plan His lipid labs from 07-19-2019 were reviewed. His total cholesterol was 152 with an LDL of 81 and an HDL of 49. His triglycerides were 109. He will continue evaluation and care as deemed appropriate. 6. Essential hypertension I10 Plan His blood pressure appears to be under reasonably good control. He will continue medical therapy. 7. 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 Plan Detail Follow Up 6 Months (with PFM) Coding Level of Care Code Off vis,est,level 4 Diagnoses Atherosclerosis of [place] coronary artery of [place] heart without angina pectoris I25.10 ??[place] vs. 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 Based upon their conclusion it was a technically difficult exam due to body habitus, the left ventricle demonstrated an LVEF of 68% with moderate concentric left ventricular hypertrophy, the left atrium was mildly enlarged, there were no significant valvular abnormalities reported. Pharmacologic stress nuclear imaging study on 05/07/2017 Stress protocol: Resting EKG demonstrates sinus bradycardia with a rate of 58 bpm occasional premature atrial complexes noted. 0.4 mg regadenoson was infused per usual protocol followed by rapid intravenous saline flush injection. Continuous EKG monitoring was performed. Patient maintained sinus rhythm throughout the recording with frequent premature ventricular complexes. The maximum heart rate attained was 61 beats minute which was 40% maximum predicted heart rate the maximum workload attained was 1 metabolic equivalent. At rest there were no ST or T-wave changes noted suggest abnormal flow reserve at peak infusion no ST or T-wave changes were noted to suggest abnormal flow reserve. The resting blood pressure was 140/80 mmHg. Myocardial perfusion protocol. 14.8 mCi of technetium 99m sestamibi was injected at rest. 0.4 mg of regadenoson was infused per usual protocol. Peak infusion 44.3 mCi of technetium 99m sestamibi was injected stress images were obtained stress and rest images were reconstructed and compared in the short axis vertical long and horizontal long axis. Gated images were also obtained. Perfusion SPECT analysis. Review of the stress images demonstrate normal uptake of tracer noted in all areas of the myocardium. The resting images similarly demonstrate normal uptake of tracer noted in all areas myocardium. There is a small portion of the apex which has a perfusion defect noted on the stress and resting images to a similar extent. The above is not suggestive of ischemia or previous infarct cannot be completely excluded or apical pacemaker activation may also be responsible. Gated SPECT analysis: The gated ejection fraction is noted to be 58%. Conclusion Probably normal pharmacologic myocardial perfusion stress test. Preserved ejection fraction. Stress Echo: 09/18/2018 Interpretation Summary The estimated ejection fraction is 65 %. Normal, adequate, dobutamine echocardiogram. Negative for ischemia by EKG and echocardiographic criteria. No anginal symptoms noted. Patient developed SVT during diffusion putamina infusion which converted to atrial fibrillation with RVR interspersed with paced ventricular beats. No associated wall motion abnormalities noted. Final LVEF is 75%. Test terminated due to attainment target heart rate. Despite several minutes post procedure patient remained in atrial fibrillation and is on anticoagulation. He has a history of paroxysmal atrial fibrillation. Decreased sensitivity due to poor echo windows requiring Definity enhancing agent. No complications. The study was technically difficult. Contrast injection was performed. Permanent pacemaker: [employer]: Model number: [id number] [employer] 60: Serial number: [id number]: Implant date of 11/12/2017 Labs LDL Cholesterol 81 mg/dL (0-130) 07/19/19 HDL Cholesterol 49 mg/dL (40-) 07/19/19 Triglycerides 109 mg/dL (-199) 07/19/19 VLDL Cholesterol 22 mg/dL (5-40) 07/19/19 Diagnostics Electrocardiogram 12/15/19 Stress Echocardiogram 09/18/18 Stress Test Nuclear Medicine 05/07/17 Stress Test 05/07/17 Pacemaker Check 12/15/19 Chest X-Ray 09/17/18
[2020-01-16 10:07] LABS: Hemoglobin 15.5 g/dL (13.0-16.5); Mean Corpuscular Hgb 30.8 pg (27.0-32.0); Mean Corpuscular Volume 93.4 fL (80-94); Mean Platelet Vol. 9.5 fl (6.2-12.0); Platelet Count 105 K/mm3 (150-450); RBC Distribution Width CV 12.7 % (11.6-14.6); RBC Distribution Width SD 43.4 fl (35.1-43.9); Red Blood Count 5.03 M/mm3 (4.6-6.2)
[2020-01-16 10:20] LABS: Anion Gap 1 (5-15); BUN 22 mg/dL (7-18); BUN/Creat Ratio 18.2 RATIO (10-20); Calcium,Total 9.1 mg/dL (8.5-10.1); Chloride 104 mmol/L (98-107); Creatinine, Serum 1.21 mg/dL (0.70-1.30); EST Glomerular Filtration Rate 62 mL/min (>60); Est Glom Filt Rate - Afr Amer 75 mL/min (>60); Estimated Creatinine Clearance 23.71 ml/min; Glucose 93 mg/dL (74-106); Potassium 4.3 mmol/L (3.5-5.1); Sodium Level 138 mmol/L (136-145)
[2020-01-16 10:23] LABS: International Normalized Ratio 1.1; Prothrombin Time (Protime)PT. 13.9 SECONDS (11.7-14.9)
[2020-01-16 10:26] LABS: AST(SGOT) 27 U/L (15-37); Alanine Aminotransfer ALT/SGPT 41 U/L (16-61); Albumin, Serum 3.7 g/dL (3.2-5.0); Alkaline Phosphatase 91 U/L (45-117); Bilirubin, Direct 0.19 mg/dL (0.00-0.30); Cholesterol 136 mg/dL (200); Globulin 3.2 g/dL (2.2-4.2); High Density Lipoprotein 54 mg/dL; Protein, Total 6.9 g/dL (6.4-8.2); Triglycerides 125 mg/dL; Very Low Density Lipoprotein 25 mg/dL (5-40)
--- NOTE | 2020-01-16 12:03 | CL.IE_ITS ---
Patient: ALIA ANDRES Study Date: 01/16/2020 Performing: Rajiv Ingram MD : 1945 Age: 74 Gender: male PROCEDURES PERFORMED HC98-AXVALYG REMOVAL+REPLACEMENT PACER-DUAL LEAD INDICATIONS Sinoatrial node dysfunction/Sick sinus syndrome PROCEDURE DETAILS The patient was brought to the Catheterization Lab in the postabsorptive nonsedated state. Infor med consent was obtained prior to the procedure. Local anesthetic was given subcutaneously to the le ft upper chest area with Lidocaine 2%. Incision was made to the left upper chest. PPM generator was r emoved. PPM atrial lead (existing) was checked and tested. PPM ventricular lead (existing) was checke d and tested. Device pocket was irrigated with antibiotic. PPM generator was attached to the lead(s) and inserted into the pocket. Subcutaneous closure was completed with 3-0 Vicryl. Skin closure was co mpleted with 4-0 Vicryl. Instrument, sponge, and needle counts were noted to be normal. The patient t olerated the procedure well. 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 Benadryl 25 mg IV 01/16/2020 10:52:57 Benadryl 25 mg IV 01/16/2020 11:15:13 Ancef 2 Gm IV @ 01/16/2020 11:16:29 Signed By Rajiv Ingram MD On 01/16/2020 12:02:41 Rajiv Ingram MD
== END 2020-01-16 14:25 | disposition home or self-care (01) ==
LOC: CLSP 09:49
PROVIDERS: Internal Medicine Cardiovascular Disease; Nurse Practitioner Family; PCP Family Medicine; Referring Provider Internal Medicine Cardiovascular Disease; Visit Provider Internal Medicine Cardiovascular Disease
DX: I48.0 Paroxysmal atrial fibrillation (principal); I49.5 Sick sinus syndrome; Z95.0 Presence of cardiac pacemaker; E78.5 Hyperlipidemia, unspecified; I25.10 Atherosclerotic heart disease of native coronary artery without angina pectoris; I10 Essential (primary) hypertension; Z79.01 Long term (current) use of anticoagulants; Z87.891 Personal history of nicotine dependence
CPT/HCPCS: 33228; 36415; 71046; 80048; 80061; 80076; 81001; 85027; 85610; J7040; J7050

== ENCOUNTER → 2020-01-31 | Outpatient (CLI) | payer MEDICARE, OTHER, SELFPAY ==
[2020-01-11 10:55] VITALS: BMI 34.4
--- NOTE | 2020-01-30 08:50 | ASPIG_PTH ---
PATIENT: ALIA ANDRES LOC: [facility] U#:[id number] AGE/SX: 74/M ROOM: RE01/31/[address]: Dr. Korina Dempsey MD : 1945 BED: DIS: 01/31/2020 SPEC #: [id number] RECD: 01/31/20 11:51 STATUS: HAILY REQ #: [id number] KOLBY: 01/30/20 08:[address]: Korina Dempsey DEPT: CYTOLOGY RECD BY: Lola Mejia ENTERED: 01/31/20 12:45 SP TYPE: ASP OUT OTHR DR: Dr. Adriano Duran MD Tissues: A - Thyroid gland, NOS B - Thyroid gland, NOS Procedures: FNA Specimen Adequacy Special Stain Group II Surgery Specimen Level IV Cytology Other HEADER OPERATION: Ultrasound-guided fine needle aspiration of left thyroid PRE-OP DIAGNOSIS: Thyroid nodules TISSUE SUBMITTED: A - FNA left thyroid for cytology, B - FNA left thyroid x8 slides DIAGNOSIS CYTOLOGY A. Left thyroid nodule fluid, ultrasound-guided FNA (cytospin and cell block): Bloody specimen. See comment. B. Left thyroid nodule, ultrasound-guided FNA (smears): A few clusters of benign follicular cells noted. The specimen is limited in evaluation due to lack of adequate number of follicular cells. See comment. SJ:astrid 02/01/20 COMMENT A. Follicular cells are not seen. Correlation with clinical, radiologic findings and appropriate follow up are necessary. CYTOLOGY STUDY Slides are reviewed. CYTOLOGY GROSS A - Received is 30 ml of brown cloudy fluid labeled with the patient's name and and designated per the requisition as left thyroid. Submitted for cytology preparation including cell block. B - Received are eight smears labeled with the patient's name and designated per the requisition as left thyroid. Submitted for staining. / astrid 01/31/20 TC:5 CPT: 37719, 78703, 88003
== END | disposition home or self-care (01) ==
LOC: LABSPEC 11:57
PROVIDERS: PCP Family Medicine; Visit Provider Surgery
DX: E04.2 Nontoxic multinodular goiter (principal)
CPT/HCPCS: 88161; 88172; 88305; 88313

== ENCOUNTER → 2020-02-09 | Outpatient (CLI) | payer MEDICARE, OTHER, SELFPAY ==
[2020-01-11 10:55] VITALS: BMI 34.4
--- NOTE | 2020-02-09 | FLU_PTH ---
PATIENT: ALIA ANDRES [facility] U#:[id number] AGE/SX: 74/M ROOM: RE02/09/[address]: Dr. Adriano Duran MD : 1945 BED: DIS: 02/09/2020 SPEC #: [id number] RECD: 02/13/20 07:53 STATUS: HAILY DAWN #: [id number] KOLBY: 02/09/20 00:[address]: Adriano Duran DEPT: CYTOLOGY RECD BY: Jeff Glass Tissues: A - Thyroid gland, NOS B - Thyroid gland, NOS Procedures: Special Stain Group II Surgery Specimen Level IV Cytospin Fluid HEADER OPERATION: Ultrasound-guided fine needle aspiration left thyroid PRE-OP DIAGNOSIS: Thyroid nodules TISSUE SUBMITTED: A - Left thyroid FNA fluid for cytology, B - Left thyroid FNA slides x8 DIAGNOSIS CYTOLOGY A. Fine needle aspiration, left thyroid nodule (cytospin and cell block): Negative for malignant cells. See comment. B. Fine needle aspiration, left thyroid nodule (smears): Adequate for evaluation. Negative, consistent with benign follicular nodule. AM:astrid 02/14/2020 COMMENT A. The specimen contains scattered benign follicular cells and blood. Clinical correlation is suggested. CYTOLOGY STUDY Slides are reviewed. CYTOLOGY GROSS A - Received is 30 ml of brown cloudy fluid labeled with the patient's name and and designated per the requisition as left thyroid. Submitted for cytology preparation including cell block. B - Received are eight smears labeled with the patient's name and designated per the requisition as left thyroid. Submitted for staining. / astrid 02/13/2020 TC:5 CPT: 15808, 62701, 88756
== END | disposition home or self-care (01) ==
LOC: LABSPEC 15:29
PROVIDERS: PCP Family Medicine; Referring Provider Family Medicine; Visit Provider Family Medicine
DX: E04.1 Nontoxic single thyroid nodule (principal)
CPT/HCPCS: 88108; 88305; 88313

== ENCOUNTER 2020-02-29 08:14 | Outpatient (RCR) | payer MEDICARE, OTHER, SELFPAY ==
[2020-01-11 10:55] VITALS: BMI 34.4
[2020-02-29 08:25] LABS: Prothrombin Time Fingerstick 13.4 SEC (11.9-14.4)
== END 2020-02-29 18:00 | disposition home or self-care (01) ==
LOC: LAB 08:14
PROVIDERS: Family Provider Family Medicine; PCP Family Medicine; Referring Provider Internal Medicine Cardiovascular Disease; Visit Provider Internal Medicine Cardiovascular Disease
DX: I48.0 Paroxysmal atrial fibrillation (principal); Z79.01 Long term (current) use of anticoagulants
CPT/HCPCS: 36416; 85610

== ENCOUNTER 2020-05-01 14:16 | Outpatient (RCR) | payer MEDICARE, OTHER, SELFPAY ==
[2020-01-11 10:55] VITALS: BMI 34.4
[2020-05-01 14:30] LABS: INR Fingerstick 1.4; Prothrombin Time Fingerstick 17.1 SEC (11.9-14.4)
== END 2020-05-01 18:00 | disposition home or self-care (01) ==
LOC: LAB 14:16
PROVIDERS: Family Provider Family Medicine; PCP Family Medicine; Referring Provider Internal Medicine Cardiovascular Disease; Visit Provider Internal Medicine Cardiovascular Disease
DX: I48.0 Paroxysmal atrial fibrillation (principal); Z79.01 Long term (current) use of anticoagulants
CPT/HCPCS: 36416; 85610

== ENCOUNTER 2020-06-21 10:01 | Outpatient (RCR) | payer MEDICARE, OTHER, SELFPAY ==
[2020-01-11 10:55] VITALS: BMI 34.4
[2020-06-21 10:26] LABS: INR Fingerstick 1.1; Prothrombin Time Fingerstick 13.8 SEC (11.9-14.4)
== END 2020-06-21 18:00 | disposition home or self-care (01) ==
LOC: LAB 10:01
PROVIDERS: Family Provider Family Medicine; PCP Family Medicine; Referring Provider Internal Medicine Cardiovascular Disease; Visit Provider Internal Medicine Cardiovascular Disease
DX: I48.0 Paroxysmal atrial fibrillation (principal); Z79.01 Long term (current) use of anticoagulants
CPT/HCPCS: 36416; 85610

== ENCOUNTER 2020-07-30 09:39 | Day surgery (SDC) | payer MEDICARE, OTHER, SELFPAY ==
[2020-07-02 14:30] VITALS: BMI 33.3
[2020-07-30 10:16] VITALS: BMI 33.1
[2020-07-30] MEDS: Lidocaine 2% (20 ml mdv) 20 ML Vial (10:32)
[2020-07-30] MEDS: Lactated Ringers 1,000 ML 100 ML IV (10:34)
[2020-07-30] MEDS: Cefazolin 2 GM in 0.9% Normal Saline 100 ML IV (11:09)
--- NOTE | 2020-07-30 11:35 | RAD_ITS ---
STUDY: X-RAY - THORACIC SPINE REASON FOR EXAM: Male, 75 years old. SPINAL CORD STIMULATOR IMPLANT TECHNIQUE: view(s) of the thoracic spine were obtained. COMPARISON: None. FINDINGS: Frontal study of the thoracolumbar spine revealed evidence of filling the vein with the catheter in the epidural area the tip lower thoracic spine Electronically Signed: Ginny Warren, at 16:16 EDT Tel , Service support , RAD/Lumbar Spine 2 or 3 Views
[2020-07-30] MEDS: Bupivacaine 0.25% 30 ML Vial (11:45)
[2020-07-30] MEDS: Bacitracin 500 UNITS/GM PACKET (12:46)
[2020-07-30 13:20] VITALS: BP 101/69; BP 133/75; PULSE 51; RESP 16; TEMP 36.2; O2SAT 91
[2020-07-30 13:26] VITALS: BP 100/48; BP 133/75; PULSE 50; RESP 16; O2SAT 94
[2020-07-30 13:30] VITALS: BP 133/75; BP 95/67; PULSE 52; RESP 16; O2SAT 95
[2020-07-30 13:30] LABS: INR Fingerstick 1.2; Prothrombin Time Fingerstick 14.5 SEC (11.9-14.4)
[2020-07-30 13:35] VITALS: BP 133/75; BP 92/67; PULSE 50; RESP 16; O2SAT 95
[2020-07-30 13:40] VITALS: BP 106/67; BP 133/75; PULSE 50; RESP 16; TEMP 36.1; O2SAT 96
[2020-07-30 14:43] VITALS: BP 104/67; BP 133/75; PULSE 52; RESP 16; TEMP 36.2; O2SAT 96
--- NOTE | 2020-07-30 16:38 | OP.PCM_ITS ---
Report of Operation Date of Procedure: 07/30/20 Description of Surgical Findings:: Pre-Operative Diagnosis: Lumbosacral radiculopathy, lumbosacral degenerative disc disease, lumbosacral spinal stenosis Post-Operative Diagnosis: Lumbosacral radiculopathy, lumbosacral degenerative disc disease, lumbosacral spinal stenosis Surgery/Procedure Performed:: 1. Spinal cord stimulator thoracolumbar leads placement x2 #2 spinal cord stimulator Medtronic intellus generator placement #3 spinal cord stimulator generator pocket creation at the right gluteal region #4 spinal cord stimulator simple programming, 5-intraoperative fluoroscopic interpretation Description of Surgical Findings:: PROCEDURES: 1. Spinal cord stimulator thoracolumbar leads placement x2 #2 spinal cord stimulator Medtronic intellus generator placement #3 spinal cord stimulator generator pocket creation at the right gluteal region #4 spinal cord stimulator simple programming 5-intraoperative fluoroscopic interpretation PREOPERATIVE DIAGNOSES: Lumbosacral radiculopathy, lumbosacral degenerative disc disease, lumbosacral spinal stenosis POSTOPERATIVE DIAGNOSES: Lumbosacral radiculopathy, lumbosacral degenerative disc disease, lumbosacral spinal stenosis ANESTHESIA: MAC COMPLICATIONS: None BLOOD LOSS: Minimal Implanted device: Spinal cord stimulator lead [id number] lot number [id number], lead #2 [id number] lot number [id number] Medtronic spinal cord stimulator generator intellus serial number [id number] PROCEDURE IN DETAIL: History and physical today was reviewed. Risks and benefits of procedure explained. The patient understood, agreed to procedure, informed consent was obtained. IV inserted per routine protocol. The patient was taken to the operating room, placed in the prone position with a pillow positioned underneath the abdomen. A 2 g of Ancef IV piggyback was infused per anesthesia. The lower back and left gluteal area was prepped and draped in a sterile fashion using iodine x3 Ioban was placed. The C-arm was brought in position for AP view at the L2-3 vertebral bodies under direct visualization fluoroscopy on a true AP view the L2-3 interlaminar space was identified skin and subcutaneous tissue and size approximately 10 cc of a mix of 2% lidocaine and 0.25% Marcaine using a 25-gauge regular needle followed by a 25-gauge 3-1/2 inch spinal needle towards the interlaminar space at L2-3, the skin and subcutaneous tissue were then anesthetized and using an 11-gauge blade was then taken down to the skin and subcutaneous tissue using a 14-gauge 3-1/2 inch Touhy needle provided by the [employer] kit the needle was passed through the skin towards the interlaminar space at L2-3 and a paramedian approach the needle was then advanced under direct visualization fluoroscopy towards the interlaminar space at L2-3 [id number] technique was then carried to air towards the interlaminar space at L2-3 once the tip of the needle was in the epidural space and loss of resistance was encountered to air and after confirmation of AP as well as oblique view of the spinal cord stimulator lead was then advanced under direct visualization fluoroscopy to be at the tip of the lead at T8 and the bottom of the lead around mid T10 after confirmation of AP as well as lateral view to confirm correct placement of the lead in the posterior compartment of the epidural space the previous procedure was then repeated to a level above at L1-2 interlaminar space the second lead was then inserted under direct visualization with fluoroscopy to be at the tip T8 and mid T10 area the leads were were then connected to the external neurostimulator and patient was then awakened to confirm satisfactory coverage of the painful area once satisfactory coverage was then achieved the stylette of each needle was then removed and the skin and subcutaneous tissue on to the left of the paramedian needles was then taken anesthetized with a total of 10 cc of the previous mixture of 0.25% Marcaine and 2% lidocaine using a 25-gauge regular needle the incision was then taken down through the skin and subcutaneous tissue towards the fascia making sure hemostasis was then maintained via cautery, the spinal cord stimulator leads were then passed through the above incision and secured using the biwing and sutured down with a 2-0 silk to the fascia at that level the spinal cord stimulator leads were then tunneled via a tunneler provided by the [employer] kit towards the previously incised spinal cord stimulator battery at the right g luteal region skin and subcutaneous tissue were anesthetized with approximately 10 cc of a mix of 2% lidocaine and 0.25% Marcaine using a 25 gauge regular needle, skin and subcutaneous tissue was then taken down with the 11-gauge blade hemostasis was maintained with Bovie and direct pressure the incision was then taken down to the fascia and the battery was then secured with the 2-0 silk sutures that were the spinal cord stimulator leads the upper lead was then marked the new until spinal cord stimulator battery was then provided [email or web address] kit the battery was then reattached of the spinal cord stimulator make ensure that the top lead is attached to the top position from 0-7 electrodes and the bottom from 8-15 electrodes once impedance was then checked to be in the proper average number the intellus battery was then inserted into the pocket and impedance with when checked again the pocket was then inspected to confirm hemostasis in place, the intellus battery was then secured to the fascia using a 2-0 silk to the upper eyes of the battery confirming an upward writing of the intellus facing posterior, once complete confirmation the battery was then placed in the position and the the mid paramedian and the gluteal incisions were then closed primarily through a 3-0 Vicryl in a running fashion followed by a 4- 0 Vicryl to the skin, hemostasis was then maintained during the procedure the skin was then covered with a Steri-Strips and bacitracin patient was then returned into the supine position in a stable condition and returned to recovery in a stable condition patient experienced no signs or symptoms of intrathecal or intravascular injection patient experienced no paresthesia the procedure was completed without any apparent difficulty any complication the patient appeared to tolerate well, motor as well as sensory function was unchanged from prior to the procedure ESTIMATED BLOOD LOSS: Minimal less than 25 mL ASSESSMENT AND PLAN: This is a 75-year-old male with lumbosacral radiculopathy lumbosacral degenerative disc disease lumbosacral spinal stenosis status post 1. Spinal cord stimulator thoracolumbar leads placement x2 #2 spinal cord stimulator Medtronic intellus generator placement #3 spinal cord stimulator generator pocket creation at the right gluteal region #4 spinal cord stimulator simple programming, 5-intraoperative fluoroscopic interpretation patient will continue her current medications a prescription was provided to the patient Keflex 500 mg 1 p.o. every 8 hours for 7 days postop instruction were given in writing to the patient and his as well as verbally and in writing, patient will follow approximately 1 week for reevaluation
== END 2020-07-30 14:53 | disposition home or self-care (01) ==
LOC: SDC 09:39 → AC 09:53
PROVIDERS: PCP Family Medicine; Referring Provider Anesthesiology Pain Medicine; Visit Provider Anesthesiology Pain Medicine
PROC: (CPT 63685; principal; 2020-07-30 10:55)
DX: M51.17 Intervertebral disc disorders with radiculopathy, lumbosacral region (principal); M48.07 Spinal stenosis, lumbosacral region; I10 Essential (primary) hypertension; Z95.0 Presence of cardiac pacemaker; G40.909 Epilepsy, unspecified, not intractable, without status epilepticus; M16.11 Unilateral primary osteoarthritis, right hip; M70.61 Trochanteric bursitis, right hip; M96.1 Postlaminectomy syndrome, not elsewhere classified; M47.812 Spondylosis without myelopathy or radiculopathy, cervical region; M50.30 Other cervical disc degeneration, unspecified cervical region; M51.37 Other intervertebral disc degeneration, lumbosacral region; M47.817 Spondylosis without myelopathy or radiculopathy, lumbosacral region; Z79.01 Long term (current) use of anticoagulants
CPT/HCPCS: 00300; 63650; 63685; 36416; 72100; 76000; 85610; C1778; C1820; J7120; J2405

== ENCOUNTER 2020-12-05 10:44 | Outpatient (RCR) | payer MEDICARE, OTHER, SELFPAY ==
[2020-07-02 14:30] VITALS: BMI 33.3
[2020-12-05 11:00] LABS: Prothrombin Time Fingerstick 33.3 SEC (11.9-14.4)
== END 2020-12-09 03:38 | disposition home or self-care (01) ==
LOC: LAB 10:44
PROVIDERS: Family Provider Family Medicine; PCP Family Medicine; Referring Provider Internal Medicine Cardiovascular Disease; Visit Provider Internal Medicine Cardiovascular Disease
DX: I48.0 Paroxysmal atrial fibrillation (principal); Z79.01 Long term (current) use of anticoagulants
CPT/HCPCS: 36416; 85610

== ENCOUNTER 2021-02-11 12:02 | Outpatient (CLI) | payer MEDICARE, OTHER, SELFPAY ==
--- NOTE | 2021-02-11 12:06 | RAD_ITS ---
STUDY: X-RAY - LUMBAR SPINE REASON FOR EXAM: Male, 75 years old. Lumbosacral spondylolysis TECHNIQUE: 5 view(s) of the lumbar spine were obtained. COMPARISON: None FINDINGS: Normal lumbar lordosis. There is no substantial scoliosis. There is a normal alignment of the vertebrae. There is posterior fusion of L2-S1. The hardware is intact. There is L3-L5 laminectomies. There is disc space narrowing at multiple levels. There is no evidence of acute fracture or loss of vertebral axial height. There is a right sided generator for a dorsal column stimulator. The electrodes are seen posterior to the lower thoracic spine. RAD/L/S Spine Min 4 Views IMPRESSION: 1. Posterior fusion of L2-S1. 2. Dorsal column stimulator. Electronically Signed: Michael Villeda DO at 23:10 EST Tel [phone], Service support ,
== END 2021-02-11 23:59 | disposition short-term general hospital (02) ==
LOC: RAD 12:05
PROVIDERS: PCP Family Medicine; Referring Provider Nurse Practitioner Family; Visit Provider Nurse Practitioner Family
DX: M51.37 Other intervertebral disc degeneration, lumbosacral region (principal); M46.96 Unspecified inflammatory spondylopathy, lumbar region; M47.817 Spondylosis without myelopathy or radiculopathy, lumbosacral region; M96.1 Postlaminectomy syndrome, not elsewhere classified
CPT/HCPCS: 72110

== ENCOUNTER 2021-03-12 12:06 | Outpatient (RCR) | payer MEDICARE, OTHER, SELFPAY ==
[2020-12-09 03:38] VITALS: BMI 33.3
[2021-03-12 12:21] LABS: INR Fingerstick 1.2
== END 2021-03-12 18:00 | disposition home or self-care (01) ==
LOC: LAB 12:06
PROVIDERS: Family Provider Family Medicine; PCP Family Medicine; Referring Provider Internal Medicine Cardiovascular Disease; Visit Provider Internal Medicine Cardiovascular Disease
DX: I48.0 Paroxysmal atrial fibrillation (principal); Z79.01 Long term (current) use of anticoagulants
CPT/HCPCS: 36416; 85610

== ENCOUNTER 2021-04-30 13:30 | Outpatient (RCR) | payer MEDICARE, OTHER, SELFPAY ==
[2021-04-09 09:36] VITALS: BMI 33.3
[2021-04-30 13:45] LABS: INR Fingerstick 1.1; Prothrombin Time Fingerstick 13.5 SEC (11.7-14.9)
== END 2021-05-09 18:00 | disposition home or self-care (01) ==
LOC: LAB 13:30
PROVIDERS: Family Provider Family Medicine; PCP Family Medicine; Referring Provider Internal Medicine Cardiovascular Disease; Visit Provider Internal Medicine Cardiovascular Disease
DX: I48.0 Paroxysmal atrial fibrillation (principal); Z79.01 Long term (current) use of anticoagulants
CPT/HCPCS: 36416; 85610

== ENCOUNTER → 2021-05-22 | Outpatient (CLI) | payer MEDICARE, OTHER, SELFPAY ==
--- NOTE | 2021-05-22 | FLU_PTH ---
PATIENT: ALIA ANDRES LOC: [facility] U#:[id number] AGE/SX: 75/M ROOM: RE05/22/[address]: Dr. Korina Dempsey MD : 1945 BED: DIS: 05/22/2021 SPEC #: [id number] RECD: 05/22/21 12:18 STATUS: HAILY REEdouard #: [id number] KOLBY: 05/22/21 00:[address]: Korina Dempsey DEPT: CYTOLOGY RECD BY: Lola Mejia ENTERED: 05/22/21 12:54 SP TYPE: Fluid OTHR DR: Dr. Adriano Duran MD Tissues: A - Thyroid gland, NOS B - Thyroid gland, NOS Procedures: Special Stain Group II Surgery Specimen Level IV Cytospin Fluid Cytology Other HEADER OPERATION: Ultrasound-guided fine needle aspiration left thyroid PRE-OP DIAGNOSIS: Thyroid nodule TISSUE SUBMITTED: A - Left thyroid nodule fluid, B - Left thyroid nodule slides x8 DIAGNOSIS CYTOLOGY A. Left thyroid nodule fluid, ultrasound-guided fine needle aspiration (cytospin and cell block): Bloody specimen. See comment. B. Left thyroid nodule, ultrasound-guided fine needle aspiration (smears): Consistent with benign follicular/colloid nodule. Adequate for evaluation. See comment. SJ:astrid 05/23/2021 COMMENT A. Rare follicular cells are noted. B. Correlation with clinical, radiologic findings and appropriate follow up are necessary. Please make reference to previous specimen ([id number]) fine needle aspiration, left thyroid nodule with diagnosis of negative, consistent with benign follicular nodule. CYTOLOGY STUDY Slides are reviewed. CYTOLOGY GROSS A - Received is 20 ml of brown cloudy fluid labeled with the patient's name and and designated per the requisition as left thyroid nodule. Submitted for cytology preparation including cell block. B - Received are eight smears labeled with the patient's name and designated per the requisition as left thyroid nodule. Submitted for staining. / astrid 05/22/2021 TC:5 CPT: 87310, 60378 x2
== END | disposition home or self-care (01) ==
LOC: LABSPEC 12:24
PROVIDERS: PCP Family Medicine; Visit Provider Surgery
DX: E04.1 Nontoxic single thyroid nodule (principal)
CPT/HCPCS: 88108; 88161; 88305; 88313

== ENCOUNTER → 2021-10-07 | Outpatient (CLI) | payer MEDICARE, OTHER, SELFPAY ==
[2021-10-07 11:00] LABS: INR Fingerstick 2.8; Prothrombin Time Fingerstick 32.2 SEC (11.7-14.9)
== END | disposition home or self-care (01) ==
LOC: LAB 10:44
PROVIDERS: PCP Family Medicine; Visit Provider Internal Medicine Cardiovascular Disease
DX: I48.0 Paroxysmal atrial fibrillation (principal); Z79.01 Long term (current) use of anticoagulants
CPT/HCPCS: 36416; 85610

== ENCOUNTER → 2021-10-18 | Outpatient (CLI) | payer MEDICARE, OTHER, SELFPAY ==
[2021-10-18 15:29] LABS: Anion Gap 7 (5-15); BUN 19 mg/dL (7-18); BUN/Creat Ratio 15.4 RATIO (10-20); Calcium,Total 9.1 mg/dL (8.5-10.1); Chloride 101 mmol/L (98-107); Creatinine, Serum 1.23 mg/dL (0.70-1.30); EST Glomerular Filtration Rate 61 mL/min (>60); Est Glom Filt Rate - Afr Amer 74 mL/min (>60); Glucose 85 mg/dL (74-106); Sodium Level 140 mmol/L (136-145)
== END | disposition home or self-care (01) ==
LOC: LAB 14:38
PROVIDERS: PCP Family Medicine; Referring Provider Nurse Practitioner Family; Visit Provider Nurse Practitioner Family
DX: R06.09 Other forms of dyspnea (principal); I48.0 Paroxysmal atrial fibrillation; I10 Essential (primary) hypertension
CPT/HCPCS: 36415; 80048

== ENCOUNTER → 2021-10-22 | Outpatient (CLI) | payer MEDICARE, OTHER, SELFPAY ==
--- NOTE | 2021-10-22 08:29 | ECHOD_ITS ---
Reason For Study: DYSPNEA/SOB Procedure This was a 2D Doppler, Color Flow transthoracic echocardiogram. The study was technically difficult. Exam performed in department. Left Ventricle Based upon the 2D echocardiographic and contrast enhanced images obtained there appears to be grossly normal left ventricular size, wall motion, and systolic function. The estimated ejection fraction is 55 %. No evidence for diastolic dysfunction. Right Ventricle Normal RV size. Normal systolic function. Atria The left atrium is mildly enlarged. The right atrium is mildly enlarged. No doppler evidence for ASD. Mitral Valve There is no mitral annular calcification. Normal mitral valve. Trivial mitral valve insufficiency. Tricuspid Valve Normal tricuspid valve. Trivial tricuspid valve insufficiency. Right ventricular systolic pressure estimated to be 21 mmHg. Aortic Valve Trisinus/trileaflet aortic valve. Mild focal aortic valve calcification. Trivial aortic valve insufficiency. Pulmonic Valve The pulmonic valve is not well visualized. Trivial pulmonic valve insufficiency. Great Vessels The aortic root is not well visualized. Pericardium/Pleural No pericardial effusion. MMode/2D Measurements & Calculations RVDd: 4.2 cm LAV(MOD-bp): 93.7 ml LVAd ap4: 39.4 cm2 LAV(MOD-bp) Indexed: 43.3 ml/m2 LVLd ap4: 9.3 cm LAV(MOD-sp2): 115.3 ml EDV(MOD-sp4): 131.4 ml LAV(MOD-sp4): 70.8 ml EDV(sp4-el): 141.3 ml LVAs ap4: 24.0 cm2 LVLs ap4: 7.5 cm ESV(MOD-sp4): 64.8 ml ESV(sp4-el): 65.6 ml EF(MOD-sp4): 50.7 % EF(sp4-el): 53.6 % SV(MOD-sp4): 66.6 ml SV(sp4-el): 75.7 ml LA A4 area: 23.8 cm2 RA A4 area: 20.5 cm2 Time Measurements MV dec time: 0.26 sec Doppler Measurements & Calculations MV E max edwin: 55.2 cm/sec Lat Peak E' Edwin: 11.8 cm/sec Med Peak E' Edwin: 7.2 cm/sec MV A max edwin: 58.0 cm/sec E/E' lat: 4.7 E/E' med: 7.7 MV E/A: 0.95 MV V2 max: 61.1 cm/sec MV dec slope: 211.9 cm/sec2 Ao V2 max: 127.3 cm/sec MV max P.5 mmHg Ao max P.7 mmHg MV V2 mean: 35.4 cm/sec Ao V2 mean: 97.9 cm/sec MV mean P.58 mmHg Ao mean P.4 mmHg MV V2 VTI: 33.5 cm Ao V2 VTI: 35.8 cm LV V1 max: 117.9 cm/sec TR max edwin: 209.9 cm/sec LV V1 max P.6 mmHg TR max P.6 mmHg LV V1 mean P.4 mmHg LV V1 mean: 86.0 cm/sec LV V1 VTI: 31.1 cm ECHO/Echo Complete Interpretation Summary The study was technically difficult. Based upon the 2D echocardiographic and contrast enhanced images obtained there appears to be grossly normal left ventricular size, wall motion, and systolic function. The estimated ejection fraction is 55 %. The left atrium is mildly enlarged. The right atrium is mildly enlarged. Trivial mitral valve insufficiency. Trivial tricuspid valve insufficiency. Mild focal aortic valve calcification. Trivial aortic valve insufficiency. Trivial pulmonic valve insufficiency. Right ventricular systolic pressure estimated to be 21 mmHg. No evidence for diastolic dysfunction. Ordering Physician: Luther Davison Referring Physician: Luther Davison Performed By: Aminta Martinez RCS
== END | disposition home or self-care (01) ==
LOC: CVS 08:29
PROVIDERS: PCP Family Medicine; Referring Provider Nurse Practitioner Family; Visit Provider Nurse Practitioner Family
DX: R06.02 Shortness of breath (principal); I25.10 Atherosclerotic heart disease of native coronary artery without angina pectoris
CPT/HCPCS: 93306

== ENCOUNTER 2022-01-30 10:40 | Outpatient (RCR) | payer MEDICARE, OTHER, SELFPAY ==
[2021-05-10 01:39] VITALS: BMI 33.3
[2022-01-30 10:56] LABS: INR Fingerstick 1.2; Prothrombin Time Fingerstick 14.9 SEC (11.7-14.9)
== END 2022-01-30 18:00 | disposition home or self-care (01) ==
LOC: LAB 10:40
PROVIDERS: Family Provider Family Medicine; PCP Family Medicine; Referring Provider Internal Medicine Cardiovascular Disease; Visit Provider Internal Medicine Cardiovascular Disease
DX: I48.0 Paroxysmal atrial fibrillation (principal); Z79.01 Long term (current) use of anticoagulants
CPT/HCPCS: 36416; 85610

== ENCOUNTER 2022-03-06 10:41 | Outpatient (RCR) | payer MEDICARE, OTHER, SELFPAY ==
[2022-02-09 02:00] VITALS: BMI 33.3
[2022-03-06 10:55] LABS: Prothrombin Time Fingerstick 13.1 SEC (11.7-14.9)
== END 2022-03-06 12:00 | disposition home or self-care (01) ==
LOC: LAB 10:41
PROVIDERS: Family Provider Family Medicine; PCP Family Medicine; Referring Provider Internal Medicine Cardiovascular Disease; Visit Provider Internal Medicine Cardiovascular Disease
DX: I48.0 Paroxysmal atrial fibrillation (principal); Z79.01 Long term (current) use of anticoagulants
CPT/HCPCS: 36416; 85610

== ENCOUNTER 2022-04-22 10:29 | Outpatient (RCR) | payer MEDICARE, OTHER, SELFPAY ==
[2022-03-12 08:09] VITALS: BMI 33.3
[2022-04-22 10:40] LABS: INR Fingerstick 1.1; Prothrombin Time Fingerstick 13.6 SEC (11.7-14.9)
== END 2022-05-09 23:00 | disposition home or self-care (01) ==
LOC: LAB 10:29
PROVIDERS: Family Provider Family Medicine; PCP Family Medicine; Referring Provider Internal Medicine Cardiovascular Disease; Visit Provider Internal Medicine Cardiovascular Disease
DX: I48.0 Paroxysmal atrial fibrillation (principal); Z79.01 Long term (current) use of anticoagulants
CPT/HCPCS: 36416; 85610

== ENCOUNTER 2022-06-10 11:55 | Outpatient (RCR) | payer MEDICARE, OTHER, SELFPAY ==
[2022-05-10 00:08] VITALS: BMI 33.3
[2022-06-10 12:11] LABS: INR Fingerstick 2.6; Prothrombin Time Fingerstick 28.2 SEC (11.7-14.9)
== END 2022-07-09 18:00 | disposition home or self-care (01) ==
LOC: LAB 11:55
PROVIDERS: Family Provider Family Medicine; PCP Family Medicine; Referring Provider Nurse Practitioner Family; Visit Provider Nurse Practitioner Family
DX: I48.0 Paroxysmal atrial fibrillation (principal); Z79.01 Long term (current) use of anticoagulants
CPT/HCPCS: 36416; 85610

== ENCOUNTER 2022-09-15 11:35 | Outpatient (RCR) | payer MEDICARE, OTHER, SELFPAY ==
[2022-07-10 08:32] VITALS: BMI 33.3
--- NOTE | 2022-09-15 11:57 | RAD_ITS ---
INDICATION: SOB -- INCREASED DYSPNEA X MONTHS EXAMINATION/TECHNIQUE: X-RAY - XR Chest 2 Views COMPARISON: 12/15/2019. FINDINGS: LINES/DEVICES: Cardiac pacer and leads are stable. Partial visualization of spinal electrical stimulation wires. LUNGS: No consolidation or evidence of an effusion. No evidence of edema or a pneumothorax. MEDIASTINUM AND CARDIOVASCULAR STRUCTURES: Cardiac silhouette is normal in size and contour. Mediastinum is unremarkable. BONES AND SOFT TISSUES: No acute abnormality. Stable chronic right rib fractures. RAD/Chest PA and Lateral IMPRESSION: No evidence of acute cardiopulmonary disease. Electronically Signed: Ruben Ryan DO at 5:25 EDT ,
[2022-09-15 12:23] LABS: Absolute Lymphocyte Count 1.28 X10^3/uL (0.83-4.51); Absolute Neutrophil Count 3.6 X10^3/uL (2.0-7.7); Basophil# 0.03 X10^3/uL; Basophil% 0.5 % (0-1); Eosinophil# 0.13 X10^3/uL; Eosinophils% 2.3 % (0-5); Hematocrit 45.9 % (40-54); Hemoglobin 15.2 g/dL (13.0-16.5); Lymphocyte # 1.28 X10^3/ul (0.83-4.51); Lymphocyte % 22.8 % (19-41); Mean Corp Hgb Conc 33.1 g/dL (32-36); Mean Corpuscular Hgb 30.3 pg (27.0-32.0); Mean Corpuscular Volume 91.4 fL (80-94); Mean Platelet Vol. 10.4 fl (6.2-12.0); Monocyte# 0.56 X10^3/uL; NRBC Flagged by Analyzer 0 % (0-5); Neutrophil # 3.59 X10^3/uL (2.7-7.7); Neutrophil % 63.9 % (47-70); Platelet Count 140 K/mm3 (150-450); RBC Distribution Width CV 12.8 % (11.6-14.6); RBC Distribution Width SD 42.5 fl (35.1-43.9); Red Blood Count 5.02 M/mm3 (4.6-6.2); White Blood Count 5.6 K/mm3 (4.4-11.0)
[2022-09-15 12:49] LABS: BNP,B-Type NATRIURETIC PEPTIDE 25.9 pg/mL (0-100)
[2022-09-15 12:58] LABS: Anion Gap 5 (5-15); BUN 16 mg/dL (7-18); Calcium,Total 8.9 mg/dL (8.5-10.1); Chloride 104 mmol/L (98-107); Creatinine, Serum 1.07 mg/dL (0.70-1.30); EST Glomerular Filtration Rate 71 mL/min (>60); Est Glom Filt Rate - Afr Amer 86 mL/min (>60); Glucose 113 mg/dL (74-106); Potassium 3.9 mmol/L (3.5-5.1); Sodium Level 137 mmol/L (136-145)
[2022-09-15 13:00] LABS: International Normalized Ratio 2.8; Prothrombin Time (Protime)PT. 29.6 SECONDS (11.7-14.9)
== END 2022-09-15 18:00 | disposition home or self-care (01) ==
LOC: LAB 11:35
PROVIDERS: Family Provider Family Medicine; PCP Family Medicine; Referring Provider Nurse Practitioner Family; Visit Provider Nurse Practitioner Family
DX: I48.0 Paroxysmal atrial fibrillation (principal); Z79.01 Long term (current) use of anticoagulants
CPT/HCPCS: 36415; 71046; 80048; 83880; 85025; 85610

== ENCOUNTER → 2023-01-02 | Outpatient (CLI) | payer MEDICARE, OTHER, SELFPAY ==
--- NOTE | 2023-01-02 10:45 | RAD_ITS ---
STUDY: X-RAY - LUMBAR SPINE REASON FOR EXAM: Male, 77 years old. History of laminectomy. Follow-up. TECHNIQUE: 6 view(s) of the lumbar spine were obtained. COMPARISON: February 11, 2021. FINDINGS: Stable osteopenia, posterior fusion from L2 to S1 with laminectomy and bone grafting, diffuse lower thoracic and lumbosacral facet sclerosis, diffuse intervertebral disc space narrowing with osteophyte formation, vacuum phenomenon at L5-S1 and electronic stimulator. Cholecystectomy clips and small calcification measuring 5 mm in diameter projected just below the left L1 transverse process. No acute abnormality or erosive changes. RAD/L/S Spine Min 4 Views IMPRESSION: Stable posterior fusion with laminectomy and bone grafting. Diffuse moderate to marked lower thoracic and lumbosacral spondylosis. Probable left small renal calculus. Electronically Signed: Bienvenido Liriano MD at 12:53 EST ,
[2023-01-02 12:23] LABS: International Normalized Ratio 4.4; Prothrombin Time (Protime)PT. 42.6 SECONDS (11.7-14.9)
[2023-01-02 12:44] LABS: Anion Gap 3 (5-15); BUN 26 mg/dL (7-18); Chloride 101 mmol/L (98-107); Creatinine, Serum 1.18 mg/dL (0.70-1.30); EST Glomerular Filtration Rate 64 mL/min (>60); Est Glom Filt Rate - Afr Amer 77 mL/min (>60); Glucose 116 mg/dL (74-106); PSA,Total - Annual Screen 1.29 ng/mL (0.00-4.00); Potassium 3.7 mmol/L (3.5-5.1); Sodium Level 134 mmol/L (136-145)
== END | disposition home or self-care (01) ==
PROVIDERS: Internal Medicine Cardiovascular Disease; Nurse Practitioner Family; PCP Family Medicine; Referring Provider Anesthesiology Pain Medicine; Visit Provider Anesthesiology Pain Medicine
DX: M96.1 Postlaminectomy syndrome, not elsewhere classified (principal); I48.0 Paroxysmal atrial fibrillation; Z79.01 Long term (current) use of anticoagulants; Z79.899 Other long term (current) drug therapy; Z12.5 Encounter for screening for malignant neoplasm of prostate
CPT/HCPCS: 36415; 72110; 80048; 84153; 85610; G0103

== ENCOUNTER 2023-01-08 12:24 | Outpatient (RCR) | payer MEDICARE, OTHER, SELFPAY ==
[2022-10-09 22:34] VITALS: BMI 33.3
[2022-12-16 09:55] LABS: INR Fingerstick 1.3; Prothrombin Time Fingerstick 15.2 SEC (11.7-14.9)
[2023-01-08 12:29] LABS: INR Fingerstick 2.7
== END 2023-01-08 18:00 | disposition home or self-care (01) ==
LOC: LAB 12:24
PROVIDERS: Family Provider Family Medicine; PCP Family Medicine; Referring Provider Nurse Practitioner Family; Visit Provider Nurse Practitioner Family
DX: I48.0 Paroxysmal atrial fibrillation (principal); Z79.01 Long term (current) use of anticoagulants
CPT/HCPCS: 36416; 85610

== ENCOUNTER 2023-01-27 08:20 | Outpatient (RCR) | payer MEDICARE, OTHER, SELFPAY ==
[2023-01-09 03:27] VITALS: BMI 33.3
[2023-01-27 08:28] LABS: INR Fingerstick 1.2; Prothrombin Time Fingerstick 14.1 SEC (11.7-14.9)
== END 2023-02-08 18:00 | disposition home or self-care (01) ==
LOC: LAB 08:20
PROVIDERS: Family Provider Family Medicine; PCP Family Medicine; Referring Provider Nurse Practitioner Family; Visit Provider Nurse Practitioner Family
DX: I48.0 Paroxysmal atrial fibrillation (principal); Z79.01 Long term (current) use of anticoagulants
CPT/HCPCS: 36416; 85610

== ENCOUNTER → 2023-07-29 | Outpatient (CLI) | payer MEDICARE, OTHER, SELFPAY ==
[2023-07-31 13:08] LABS: QNTFERON TB Mitogen Value > 10.00 IU/mL (.); QNTFERON TB Nil Value 0.02 IU/mL (.); QNTFERON TB1+ Ag Value 0.01 IU/mL (.); QNTFERON TB2+ Ag Value 0.01 IU/mL (.); QNTIFERON TB Positive Criteria Negative (Negative)
== END | disposition home or self-care (01) ==
PROVIDERS: PCP Family Medicine; Referring Provider Physician Assistant Medical; Visit Provider Physician Assistant Medical
DX: L40.0 Psoriasis vulgaris (principal); Q80.8 Other congenital ichthyosis; L72.0 Epidermal cyst; D48.5 Neoplasm of uncertain behavior of skin; L81.4 Other melanin hyperpigmentation; L57.8 Other skin changes due to chronic exposure to nonionizing radiation; L82.1 Other seborrheic keratosis; D22.5 Melanocytic nevi of trunk; L90.5 Scar conditions and fibrosis of skin; L98.8 Other specified disorders of the skin and subcutaneous tissue; L85.3 Xerosis cutis; L60.3 Nail dystrophy; Z79.899 Other long term (current) drug therapy; Z71.89 Other specified counseling; Z08 Encounter for follow-up examination after completed treatment for malignant neoplasm; Z85.820 Personal history of malignant melanoma of skin
CPT/HCPCS: 36415; 86480

== ENCOUNTER → 2023-11-05 | Outpatient (CLI) | payer MEDICARE, OTHER, SELFPAY ==
--- NOTE | 2023-11-05 10:39 | VDLE_ITS ---
Reason For Study: RLE SWELLING RIGHT LEFT GSV is normal. CFV is compressible, spontaneous, phasic, CFV is compressible, spontaneous, phasic, competent, and demonstrates normal competent and demonstrates normal augmentation. augmentation. FV is compressible, spontaneous, phasic, competent and demonstrates normal augmentation. POP V is compressible, spontaneous, phasic, competent and demonstrates normal augmentation. T/P Trunk is compressible. PTV is compressible. RT PerV is compressible. Procedure This is a venous duplex using B-mode, color flow and spectral Doppler. Exam performed in department. A preliminary report was called and/or faxed to Dr. Ingram @ 11 am. VL/Venous Duplex US, Unilateral Interpretation Summary Deep veins of the right lower extremity are patent and compressible segmentally . There is no evidence of right lower extremity deep vein thrombosis. Valvular competence jonas ears intact within the proximal deep venous system on the right . The right great saphenous vein a ppears patent and compressible segmentally. The left common femoral vein is patent and compressib le . Ordering Physician: Rajiv Ingram Referring Physician: Adriano Duran Performed By: Ebony Josue, SAÚL, RVT
== END | disposition home or self-care (01) ==
PROVIDERS: PCP Family Medicine; Referring Provider Internal Medicine Cardiovascular Disease; Visit Provider Internal Medicine Cardiovascular Disease
DX: I48.92 Unspecified atrial flutter (principal); M79.89 Other specified soft tissue disorders
CPT/HCPCS: 36415; 85610; 93971

== ENCOUNTER 2024-01-12 15:29 | Outpatient (RCR) | payer MEDICARE, OTHER, SELFPAY | END 2024-02-09 23:59 | LOC: LAB.FUTURE 15:29 | PROVIDERS: PCP Family Medicine; Referring Provider Internal Medicine Cardiovascular Disease; Visit Provider Internal Medicine Cardiovascular Disease | DX: Z79.01 Long term (current) use of anticoagulants (principal) ==

== ENCOUNTER → 2024-01-12 | Outpatient (CLI) | payer MEDICARE, OTHER, SELFPAY ==
[2024-01-12 12:18] LABS: International Normalized Ratio 1.2; Prothrombin Time (Protime)PT. 15.4 SECONDS (11.7-14.9)
[2024-01-12 12:45] LABS: Anion Gap 3 (5-15); BUN 15 mg/dL (7-18); BUN/Creat Ratio 12.3 RATIO (10-20); Calcium,Total 9.3 mg/dL (8.5-10.1); Chloride 105 mmol/L (98-107); Creatinine, Serum 1.22 mg/dL (0.70-1.30); EST Glomerular Filtration Rate 61 mL/min (>60); Est Glom Filt Rate - Afr Amer 74 mL/min (>60); Glucose 113 mg/dL (74-106); Potassium 4.3 mmol/L (3.5-5.1); Sodium Level 138 mmol/L (136-145)
== END | disposition home or self-care (01) ==
PROVIDERS: Nurse Practitioner Family; PCP Family Medicine; Referring Provider Internal Medicine Cardiovascular Disease; Visit Provider Clinical Nurse Specialist Adult Health
DX: Z01.812 Encounter for preprocedural laboratory examination (principal); Z79.01 Long term (current) use of anticoagulants
CPT/HCPCS: 36415; 80048; 85610

== ENCOUNTER → 2024-06-16 | Outpatient (CLI) | payer MEDICARE, OTHER, SELFPAY ==
[2024-06-16 10:15] LABS: International Normalized Ratio 1.2; Prothrombin Time (Protime)PT. 15.1 SECONDS (11.7-14.9)
== END | disposition home or self-care (01) ==
LOC: LAB 09:45
PROVIDERS: PCP Family Medicine; Referring Provider Clinical Nurse Specialist Adult Health; Visit Provider Clinical Nurse Specialist Adult Health
DX: Z79.01 Long term (current) use of anticoagulants (principal)
CPT/HCPCS: 36415; 85610

== ENCOUNTER → 2024-07-29 | Outpatient (CLI) | payer MEDICARE, OTHER, SELFPAY ==
[2024-08-02 04:07] LABS: QNTFERON TB Mitogen Value > 10.00 IU/mL (.); QNTFERON TB Nil Value 0.06 IU/mL (.); QNTFERON TB1+ Ag Value 0.05 IU/mL (.); QNTFERON TB2+ Ag Value 0.05 IU/mL (.); QNTIFERON TB Positive Criteria Negative (Negative)
== END | disposition home or self-care (01) ==
PROVIDERS: PCP Family Medicine; Referring Provider Physician Assistant Medical; Visit Provider Physician Assistant Medical
DX: L40.0 Psoriasis vulgaris (principal)
CPT/HCPCS: 36415; 86480

== ENCOUNTER → 2024-08-25 | Outpatient (CLI) | payer MEDICARE, OTHER, SELFPAY ==
[2024-08-25 14:07] LABS: INR Fingerstick 1.1
== END | disposition home or self-care (01) ==
LOC: LAB 10:44
PROVIDERS: PCP Family Medicine; Referring Provider Anesthesiology Pain Medicine; Visit Provider Anesthesiology Pain Medicine
DX: Z79.01 Long term (current) use of anticoagulants (principal)
CPT/HCPCS: 36416; 85610